=== PATIENT | male | born 1950 | race Caucasian/White ===

== ENCOUNTER 2020-09-13 06:50 | Inpatient (IN) ==
--- NOTE | 2020-08-11 09:52 | PAT Medication Instructions ---
Medication Instructions Date of Service August 11, 2020 Home Medications cholecalciferol (vitamin D3) [Vitamin D3] 2,000 unit PO QAM cyanocobalamin (vitamin B-12) [Vitamin B-12] 1,000 mcg PO QAM acetaminophen [Tylenol Arthritis Pain] 1,300 mg PO Q12H aspirin [Aspir-81] 81 mg PO QPM fish oil-dha-epa 1 cap PO TID hydrochlorothiazide 12.5 mg PO QAM lisinopril 10 mg PO QAM ofloxacin 5 drp OTIC (EAR) BID PRN omeprazole 20 mg PO QPM potassium chloride 20 meq PO QAM prazosin 5 mg PO HS simvastatin 80 mg PO HS STOP taking 2 weeks before surgery (or as soon as possible if surgery is within 2 weeks) fish oil-dha-epa 1 cap PO TID DO NOT take the morning of surgery cholecalciferol (vitamin D3) [Vitamin D3] 2,000 unit PO QAM cyanocobalamin (vitamin B-12) [Vitamin B-12] 1,000 mcg PO QAM hydrochlorothiazide 12.5 mg PO QAM lisinopril 10 mg PO QAM potassium chloride 20 meq PO QAM Take morning of surgery With a small sip of water, OTHERWISE NOTHING TO EAT OR DRINK AFTER MIDNIGHT: acetaminophen [Tylenol Arthritis Pain] 1,300 mg PO Q12H (okay to take up to 4 hours prior to surgery if needed) ofloxacin 5 drp OTIC (EAR) BID PRN (if needed) Take evening before surgery acetaminophen [Tylenol Arthritis Pain] 1,300 mg PO Q12H (if needed) aspirin [Aspir-81] 81 mg PO QPM ofloxacin 5 drp OTIC (EAR) BID PRN (if needed) omeprazole 20 mg PO QPM prazosin 5 mg PO HS simvastatin 80 mg PO HS Other Notes If you have any questions please call us at [phone] or [phone] or [phone] or [phone]
--- NOTE | 2020-08-15 11:08 | Anesthesiology Consultation ---
Date of Service August 15, 2020 Assessment & Plan (1) Encounter for pre-operative examination: - Per assessment on 08/15: Travel screen negative. No known COVID-19 positive contacts or current COVID-19 related symptoms. Surgeon arranging preop COVID testing. Awaiting results. - ASA instructions per surgeon/prescriber Chart Review Chart Review: Acceptable Risk for Surgery (pending surgeon-ordered PCP clearance) and Patient seen in Pre Admission Testing Teaching & Discussion Pre-Anesthesia Teaching/Discussion Notes: Instructed NPO after midnight before surgery,except medications with 15 cc of water. Medication instructions provided according to the PAT guidelines. History Surgery Operation Date: 09/13/20 08:55 Proposed Procedures p Left Anterior Total Hip Arthroplasty - Jn Eric, Height/Weight Height: 5 ft 5 in Weight: 79.1 kg Allergies Allergy/AdvReac Type Severity Reaction Status Date / Time No Known Drug Allergies Allergy Verified 08/03/20 15:00 Medications Home Medications Medication Instructions Recorded Confirmed Last Taken cholecalciferol (vitamin D3) 2,000 unit PO QAM 06/28/19 08/03/20 06/28/19 [Vitamin D3] cyanocobalamin (vitamin B-12) 1,000 mcg PO QAM 06/28/19 08/03/20 06/28/19 [Vitamin B-12] aspirin [Aspir-81] 81 mg PO QAM 08/03/20 08/15/20 Unknown fish oil-dha-epa 1 cap PO TID 08/03/20 08/03/20 Unknown omeprazole 20 mg PO QPM 08/03/20 08/03/20 Unknown prazosin 5 mg PO HS 08/03/20 08/03/20 Unknown simvastatin 80 mg PO HS 08/03/20 08/03/20 Unknown lisinopril-hydrochlorothiazide 1 tab PO DAILY 08/15/20 08/15/20 Unknown Past Medical History Medical History Arthritis GERD (gastroesophageal reflux disease) Hyperlipidemia Hypertension Post traumatic stress disorder Sleep apnea CPAP Exercise / Class Metabolic Activity II 4-5 Yardwork/Stairs/Walk up hill (no chest pain/sob with activity (works as net mvc developer)) Past Family History Family History Family/Other Hearing loss Hypertension Father Family history of diabetes mellitus Other No family history of adverse response to anesthesia No family history of bleeding disorder Past Surgical History Surgical History History of appendectomy History of colonoscopy History of ear surgery History of esophagogastroduodenoscopy (EGD) History of knee surgery Right History of tonsillectomy Past Anesthesia History No Hx of Anesthesia Complications and No Family Hx of Anesthesia Complications History of PONV No Hx of PONV and No Hx of Motion Sickness Social History Smoking Status: Never smoker tobacco type: smokeless tobacco Do You Dip or Chew Tobacco: Yes (2 cans/week- advised NPO AM DOS) Hx Alcohol Use: Yes Alcohol type: beer alcohol intake frequency: 0-2 drinks per day (2 drinks/day) Hx Substance Use: No Review of Systems Patient denies chest pain, shortness of breath, dyspnea on exertion, fever, chills, cough, wheezing, palpitations. Physical Exam Vital Signs VITALS BP 129/77 P 62 TEMP 98.2 SP02 97%RA RESP 16 PHYSICAL Full neck and c-spine range of motion. Full TMJ range of motion. TMD 3.5 finger breaths Mallampati Score 2 Dentition: full dentures upper/lower Lungs: clear throughout to auscultation Cardiac: regular rate and rhythm, no murmurs noted Spine: normal Carotid arteries: negative bruit Extremities: no edema Testing Laboratory Results 08/15/20 11:55 08/15/20 11:55 PT 10.9 Seconds (9.0-12.0) 08/15/20 11:55 INR 1.0 (0.9-1.1) 08/15/20 11:55 APTT 27.0 Seconds (21.0-31.0) 08/15/20 11:55 Hemoglobin A1c 5.5 % (4.5-5.6) 08/15/20 11:55 Urine Color Yellow 08/15/20 11:55 Urine Appearance Clear (Clear) 08/15/20 11:55 Urine pH 5.0 (4.5-7.5) 08/15/20 11:55 Ur Specific [place] 1.023 (1.000-1.030) 08/15/20 11:55 Urine Protein Negative (Negative) 08/15/20 11:55 Urine Glucose (UA) Negative (Negative) 08/15/20 11:55 Urine Ketones Negative (Negative) 08/15/20 11:55 Urine Nitrite Negative (Negative) 08/15/20 11:55 Ur Leukocyte Esterase Negative (Negative) 08/15/20 11:55 Blood Type A Negative 08/15/20 11:55 Antibody Screen NEGATIVE 08/15/20 11:55 Electrocardiogram Date: 08/15/20 SB at 59bpm. RBBB. unconfirmed report. Chest X-Ray Date: 08/15/20 FINDINGS: The cardiac and mediastinal contours are normal. There is no evidence of focal pulmonary consolidation. There is no evidence of failure. No pleural effusions are visualized.[ IMPRESSION: No active disease in the chest. Echocardiogram Date: 12/15/19 EF 50 to 55%. Suggestive of diastolic dysfunction but not diagnostic. Moderate LAD. Mild to moderate MR. RVSP 17.51 mmHg. Stress Test Date: 12/30/19 Type: nuclear Negative for ischemia by EKG criteria. 7.0 METS. 85% MPHR.
--- NOTE | 2020-08-15 11:53 | PAT Medication Instructions ---
Medication Instructions Date of Service August 15, 2020 Home Medications cholecalciferol (vitamin D3) [Vitamin D3] 2,000 unit PO QAM cyanocobalamin (vitamin B-12) [Vitamin B-12] 1,000 mcg PO QAM aspirin [Aspir-81] 81 mg PO QAM fish oil-dha-epa 1 cap PO TID hydrochlorothiazide 12.5 mg PO QAM/lisinopril 10 mg PO QAM omeprazole 20 mg PO QPM prazosin 5 mg PO HS simvastatin 80 mg PO HS STOP taking 2 weeks before surgery (or as soon as possible if surgery is within 2 weeks) fish oil-dha-epa 1 cap PO TID DO NOT take the morning of surgery cholecalciferol (vitamin D3) [Vitamin D3] 2,000 unit PO QAM cyanocobalamin (vitamin B-12) [Vitamin B-12] 1,000 mcg PO QAM hydrochlorothiazide 12.5 mg PO QAM/lisinopril 10 mg PO QAM Take morning of surgery With a small sip of water, OTHERWISE NOTHING TO EAT OR DRINK AFTER MIDNIGHT: aspirin [Aspir-81] 81 mg PO QAM Take evening before surgery omeprazole 20 mg PO QPM prazosin 5 mg PO HS simvastatin 80 mg PO HS Other Notes If you have any questions please call us at [phone] or [phone] or [phone] or [phone]
[2020-08-15 12:20] LABS: Basophils # (auto) 0.02 K/uL (0-0.2); Basophils % (auto) 0.3 %; Eosinophils % (auto) 1.5 %; Hematocrit (blood only) 39.1 % (42-52); Hemoglobin 13.7 g/dL (14.0-18.0); Immature Granulocytes # (auto) 0.01 K/uL (0.00-0.02); Immature Granulocytes % (auto) 0.1 %; Lymphocytes # (auto) 1.17 K/uL (1.2-3.4); Lymphocytes % (auto) 17.2 %; Mean Corpuscular Hemoglobin 32.5 pg (25-34); Mean Corpuscular Volume 92.9 fL (80-100); Mean Platelet Volume 8.4 fL (7.4-10.4); Monocytes # (auto) 0.31 K/uL (0.11-0.59); Monocytes % (auto) 4.5 %; Neutrophils # (auto) 5.21 K/uL (1.4-6.5); Neutrophils % (auto) 76.4 %; Platelet Count 215 K/uL (130-400); RDW Coefficient of Variation 12.9 % (11.5-14.5); Red Blood Count 4.21 M/uL (4.7-6.1); White Blood Count 6.82 K/uL (4.8-10.8)
--- NOTE | 2020-08-15 12:21 | XRay Report ---
XR chest Pre-admission PA/Lat CLINICAL HISTORY: Preoperative chest COMPARISON STUDY: 09/24/2019 FINDINGS: The cardiac and mediastinal contours are normal. There is no evidence of focal pulmonary co nsolidation. There is no evidence of failure. No pleural effusions are visualized.[ IMPRESSION: No active disease in the chest. ACT 112: Negative or not required by law. Electronically signed by: Jaison Vazquez M.D. 08/15/2020 12:20 PM
[2020-08-15 12:25] LABS: Appearance Urine Clear (Clear); Bilirubin Urine Negative (Negative); Blood Urine Negative (Negative); Color Urine Yellow; Glucose Urine UA Negative (Negative); Ketones Urine Negative (Negative); Leukocyte Esterase Urine Negative (Negative); Nitrite Urine Negative (Negative); Protein Urine Negative (Negative); Specific Gravity Urine 1.023 (1.000-1.030); Urobilinogen Urine Negative (Negative)
[2020-08-15 12:28] LABS: Albumin Level 3.9 gm/dl (3.4-5.0); BUN Creatinine Ratio 18.7 (10-20); Calcium 9.3 mg/dl (8.5-10.1); Creatinine Clr Calc Pharmacy 61.1 ml/min; Est GFR (African American) 80.9; Est GFR (Non-African American) 69.8
[2020-08-15 12:32] LABS: Prothrombin Time 10.9 Seconds (9.0-12.0)
[2020-08-15 13:10] LABS: Estimated Average Glucose 111 mg/dl; Hemoglobin A1C 5.5 % (4.5-5.6)
--- NOTE | 2020-08-15 16:50 | Electrocardiogram Report ---
Test Reason : Blood Pressure : / mmHG Vent. Rate : 059 BPM Atrial Rate : 059 BPM P-R Int : 202 ms QRS Dur : 142 ms QT Int : 468 ms P-R-T Axes : 054 009 016 degrees QTc Int : 463 ms Sinus bradycardia Right bundle branch block Abnormal ECG When compared with ECG of 24-SEP-2019 02:16, T wave inversion no longer evident in Anterior leads Confirmed by Reynold Tsang ([id number]) on 08/15/2020 4:49:41 PM Referred By: Jn Eric Confirmed By:Catrachito Tsang
--- NOTE | 2020-09-12 21:17 | History & Physical Report ---
Date of Service September 13, 2020 Assessment & Plan (1) Degenerative joint disease of left hip: I have indicated the patient for left anterior total hip replacement. The risks, benefits and complications of surgery were explained to the patient which include but not limited to infection, acute blood loss, DVT/PE, injury to nerves, vessels, bone, soft tissue, arthrofibrosis, chronic pain, failure of the prosthesis, hip dislocation, leg length discrepancy, need for additional surgery, cardiac and pulmonary events and . The patient wished to proceed with surgery and informed consent was obtained at this time. We will plan for 81mg ASA BID post-operatively for DVT prophylaxis. Upon discharge the patient will be discharged home with home health services. Appropriate clearances by PCP were obtained. History of Present Illness Chief Complaint: Left hip pain/DJD/AVN Primary Care Provider: Sarah Silva The patient is a 70 year old male who presents with complaints of severe left hip pain and DJD. The patient has failed outpatient conservative treatments to this point which included NSAIDs, home exercise/walking program. The patient's pain and limited function have progressed to the point where they severely hinde r their activities of daily living and they no longer tolerate exercise programs. They are requesting to proceed with total hip replacement surgery. Allergies Allergy/AdvReac Type Severity Reaction Status Date / Time No Known Drug Allergies Allergy Unknown Verified 09/13/20 07:09 Home Medications Medication Instructions Recorded Confirmed Type cholecalciferol (vitamin D3) 2,000 unit PO QAM 06/28/19 09/13/20 History [Vitamin D3] cyanocobalamin (vitamin B-12) 1,000 mcg PO QAM 06/28/19 09/13/20 History [Vitamin B-12] aspirin [Aspir-81] 81 mg PO QAM 08/03/20 09/13/20 History fish oil-dha-epa 1 cap PO TID 08/03/20 09/13/20 History omeprazole 20 mg PO QPM 08/03/20 09/13/20 History prazosin 5 mg PO HS 08/03/20 09/13/20 History simvastatin 80 mg PO HS 08/03/20 09/13/20 History lisinopril-hydrochlorothiazide 1 tab PO DAILY 08/15/20 09/13/20 History Past Med/Surg History Medical History Arthritis GERD (gastroesophageal reflux disease) Hyperlipidemia Hypertension Post traumatic stress disorder Sleep apnea CPAP Surgical History History of appendectomy History of colonoscopy History of ear surgery History of esophagogastroduodenoscopy (EGD) History of knee surgery Right History of tonsillectomy Family History Family/Other Hearing loss Hypertension Father Family history of diabetes mellitus Other No family history of adverse response to anesthesia No family history of bleeding disorder Social History Smoking Status: Never smoker Second Hand Exposure: Yes (FATHER SMOKED); Do You Dip or Chew Tobacco: Yes (2 cans/week- advised NPO AM DOS); Hx Alcohol Use: Yes Alcohol type: beer Alcohol Intake Frequency Comment: 2 DRINKS PER DAY Hx Substance Use: No Preferred Language: [place] Communication Ability: Effective Vice President Of Business Development Required: No Beliefs That Will Affect Care: None Current Living Situation: Spouse Other Information That Helps Us Care for You: No Feels Safe at Home: Yes Safety Concerns: Feels Safe At This Time Assistive Devices: CPAP, Denture - Upper, Denture - Lower, Glasses and Hearing Aid - Bilateral Review of Systems Review of Systems: All systems reviewed & are unremarkable except as noted in HPI & below Constitutional: as per Subjective / HPI Physical Exam Physical Exam: LLE NVSI +EHL/FHL/TA/GS SILT grossly, +2 DP pulse, compartments soft NT, limited painful ROM of the hip, antalgic gait. Constitutional: WD/WN, vitals as above Eyes: PERRL, conjunctivae normal, anicteric sclerae ENMT: external ear and nose normal, oropharynx normal Neck: trachea midline, no thyromegaly Respiratory: normal respiratory effort, lungs clear to auscultation Cardiovascular: RRR, no murmur, no edema Gastrointestinal (Abdomen): normal bowel sounds, soft, nontender, no hepatosplenomegaly Musculoskeletal: no cyanosis or clubbing, extremities motor strength 5/5 Skin: no rashes, warm and dry Neurologic: patellar DTR's 2+ bilat, sensation intact Psychiatric: A+Ox3, euthymic affect Lymphatic: no cervical or axillary lymphadenopathy Results & Data Results & Data ([facility]) Diagnostic Findings Multiple views of the hip demonstrates severe DJD/AVN with complete loss of the joint space. +osteophytes, +sclerosis, +subchondral cysts. Pre Admission Testing Addendum Laboratory Results 08/15/20 11:55 08/15/20 11:55 PT 10.9 Seconds (9.0-12.0) 08/15/20 11:55 INR 1.0 (0.9-1.1) 08/15/20 11:55 APTT 27.0 Seconds (21.0-31.0) 08/15/20 11:55 Hemoglobin A1c 5.5 % (4.5-5.6) 08/15/20 11:55 Urine Color Yellow 08/15/20 11:55 Urine Appearance Clear (Clear) 08/15/20 11:55 Urine pH 5.0 (4.5-7.5) 08/15/20 11:55 Ur Specific [place] 1.023 (1.000-1.030) 08/15/20 11:55 Urine Protein Negative (Negative) 08/15/20 11:55 Urine Glucose (UA) Negative (Negative) 08/15/20 11:55 Urine Ketones Negative (Negative) 08/15/20 11:55 Urine Nitrite Negative (Negative) 08/15/20 11:55 Ur Leukocyte Esterase Negative (Negative) 08/15/20 11:55 Blood Type A Negative 08/15/20 11:55 Antibody Screen NEGATIVE 08/15/20 11:55
[~2020-09-13 06:50] MED LIST: ACETAMINOPHEN 500 MG TAB PO SCH; BUPIVACAINE 0.5 % 5 MG/1 ML PF 10ML VIAL ONE; CeleBREX 200 MG CAP PO SCH; FAMOTIDINE 20 MG TAB PO SCH; GABAPENTIN 300 MG CAP PO SCH; LR 15ML/HR IV SCH; METOCLOPRAMIDE HCL 10 MG TABLET PO SCH; ROPIVACAINE 0.5% HCL/PF 150 MG, BUPIVACAINE 0.75% MPF 20 ML, EPINEPHrine 30MG/30ML (OR ... INSTIL SCH; TRANEXAMIC ACID 1,000 MG **IV Intra-op IV SCH; TRANEXAMIC ACID 1,000 MG **IV Pre-op IV SCH; ceFAZolin 2000MG 2,000 MG/15 ML SYR IV SCH; dexAMETHasone 4 MG TAB PO SCH
[2020-09-13] MEDS ORDERED: PHENYLEPHRINE 100MCG/ML 5ML SYR IV PRN (08:27)
[2020-09-13] MEDS ORDERED: MEPERIDINE HCL 25 MG/ML CARP/VIAL IV PRN (08:27)
[2020-09-13] MEDS ORDERED: LABETALOL HCL IV 5 MG/ML 20ML IV PRN (08:27)
[2020-09-13] MEDS ORDERED: ATROPINE SULFATE 0.1 MG/ML 10ML SYR IV PRN (08:27)
[2020-09-13] MEDS ORDERED: ONDANSETRON INJ 2 MG/ML 2 ML VIAL IV PRN ×2 (08:27→13:45)
[2020-09-13] MEDS ORDERED: fentaNYL citrate 100 MCG/2 ML VIAL IV PRN (08:27)
[2020-09-13] MEDS ORDERED: ePHEDrine sulfate 50 MG/ML AMP IV PRN (08:27)
[2020-09-13] MEDS ORDERED: HYDROmorphone INJ 1 MG/ML SYRINGE IV PRN (08:27)
[2020-09-13] MEDS ORDERED: MIDAZOLAM HCL 1 MG/ML 2ML VIAL ONE ×3 (09:08→10:36)
[2020-09-13] MEDS ORDERED: PROPOFOL IV EMULSION 10 MG/ML 20 ML VIAL IV ONE (09:10)
--- NOTE | 2020-09-13 09:29 | History & Physical Bridge Note ---
Date of Service September 13, 2020 History & Physical Bridge Note I have examined the patient, reviewed the History & Physical and in the interval since the performance of the History & Physical I have noted the following changes of clinical significance: no changes noted
[2020-09-13] MEDS ORDERED: BACITRACIN INJ 50,000 UNIT VIAL ONE (09:46)
[2020-09-13] MEDS ORDERED: ORTHO JOINT ANESTHETIC ONE (09:46)
[2020-09-13] MEDS ORDERED: ePHEDrine sulfate 50 MG/ML SYR ONE (10:58)
[2020-09-13] MEDS ORDERED: LIDOCAINE HCL 2% 2 ML VIAL/AMP(20MG/ML) INFIL ONE (10:58)
--- NOTE | 2020-09-13 11:55 | Post Operative Brief Note ---
Immediate Post Op Note v1 Date of Surgery September 13, 2020 Pre & Post Diagnosis Operation Date: 09/13/20 09:15 Pre-Op Diagnosis: Unilateral Primary Osteoarthritis, Left Hip Post-Op Diagnosis: Unilateral Primary Osteoarthritis, Left Hip I identified the patient and participated in the time-out.: Yes Procedure Operation Date: 09/13/20 09:15 Actual Procedures p Left Anterior Total Hip Arthroplasty(Left) - Jn Eric DO Surgeon Jn Eric DO Colliery Clerk Tripp Schaffer Estimated Blood Loss 175 Findings Consistent with Post-Op Diagnosis Specimens femoral head Anesthesia Type Spinal MAC Complications none Disposition Disposition: Recovery Room Overlapping Procedure I was present for: the critical portions of procedure. I was immediately available: during the entire case. Back up surgeon: was not required during procedure.
--- NOTE | 2020-09-13 11:58 | Operative Report ---
Post Operative Report Pre & Post Diagnosis Operation Date: 09/13/20 09:15 Pre-Op Diagnosis: Unilateral Primary Osteoarthritis, Left Hip Post-Op Diagnosis: Unilateral Primary Osteoarthritis, Left Hip I identified the patient and participated in the time-out.: Yes Procedure Operation Date: 09/13/20 09:15 Actual Procedures p Left Anterior Total Hip Arthroplasty(Left) - Jn Eric DO Surgeon Jn Eric DO Medical Doctor Md Tripp Schaffer Estimated Blood Loss 175 Findings Consistent with Post-Op Diagnosis Specimens femoral head Anesthesia Type Spinal MAC Complications none Disposition Disposition: Recovery Room Indications The patient is a 70-year-old male who presents with severe progressive left hip DJD who has failed outpatient conservative treatments. I indicated the patient for a anterior total hip replacement and the risks and benefits were explained in detail which include but not limited to infection, bleeding, blood clot, damage to surrounding bone, nerves, vessels, soft tissue, hip dislocation, failure of the prosthesis, leg length discrepancy, need for additional surgery and . The patient agreed to proceed with replacement of the hip and informed consent was obtained. Appropriate clearances were obtained. Description of Procedure COMPONENTS USED: [employer] hip system: Acetabulum size 54, femur size 8 high offset, femoral head 36-3, liner 54x36, acetabular screw 25 mm x 1. DESCRIPTION OF PROCEDURE: Following satisfactory spinal anesthesia, the patient was placed supine on the OR table. The right leg was placed in the well leg dickerson and the left leg in the traction device. The left leg was prepared with ChloraPrep and draped sterilely. A surgical timeout was performed, patient identified and site stanislaw verified. Appropriate antibiotics were given. A standard anterior approach in the interval between the sartorius and tensor muscles was performed. Dissection was carried down through subcutaneous tissues. Electrocautery was utilized for hemostasis. Circumflex femoral vessels were identified, tied and ligated. The anterior capsular fat pad was removed and the capsulotomy was performed revealing the arthritic femoral neck and head. A femoral neck cut was made with reciprocating saw and the bone fragments removed. The acetabular self-retraining retractor was placed. Acetabular reaming was completed under fluoroscopic guidance, a 54 shell was impacted into an anatomic position and secured with a acetabular screw. Local anesthetic was placed and following irrigation, the polyethylene liner was placed. The femur was placed into position of external rotation, extension and adduction. Femoral canal was prepared up to the size 8 high offset. Trial reduction with a 36-3 neck length head showed good soft tissue tension, leg lengths restored, and good fit and fill of the proximal canal using fluoroscopic landmarks. The hip was dislocated. The trial component was removed. The final implant was placed. The hip was irrigated with sterile saline solution and reduced. A Betadine soak was performed. After 3 minutes, the hip was once more irrigated with copious sterile saline solution with bacitracin. Anu-incisional soft tissue was injected utilizing [place] Orthomix which includes a combination of Ropivicaine 0.5% 150mg, Bupivicaine 0.5%/Epinephrine 1:200,000 30ml, Toradol 30mg, Dexamethasone 4mg, Ketamine 10mg, Clonidine 100mcg and NSS 30ml solution. The capsule was then closed with 1-0 Vicryl interrupted figure of eight sutures. The fascia was closed with a running suture of #1 Vicryl, the subcutaneous tissues with 2-0 Vicryl and the skin was closed with jasmyne. A sterile dry dressing was applied which included azar incisional VAC. The patient tolerated the procedure well and was transported to PACU in stable condition. Due to the complex nature of the procedure, the entire surgery was performed with the operational assistance of Tripp Schaffer PA-C. The assistant professor of drama, under direct supervision, was involved in the actual performance of all aspects of the surgical procedure including patient positioning, hemostasis, tissue retraction, instrument management and wound closure. I attest to the content of the Intraoperative Record and any orders documented therein. Any exceptions are noted below.
--- NOTE | 2020-09-13 12:37 | Fluoroscopy Report ---
FL hip LT 1V CLINICAL HISTORY: LEFT ANTERIOR HIP COMPARISON STUDY: None. FLUOROSCOPY TIME: 32 seconds. FINDINGS: 3 fluoroscopic spot images of the left hip demonstrate left hip arthroplasty. The hardware is intact. No fracture or dislocation. IMPRESSION: Fluoroscopy provided for left total hip arthroplasty. ACT 112: Negative or not required by law. Electronically signed by: Garett Schmidt M.D. 09/13/2020 12:36 PM
--- NOTE | 2020-09-13 12:58 | XRay Report ---
AP PELVIS, CROSSTABLE LATERAL LEFT HIP History: Left total hip arthroplasty. Degenerative arthritis. Postop. FINDINGS: The patient is status post a left total hip arthroplasty. The hardware is intact. No fractu re or dislocation. Severe degenerative changes noted within the right hip. Left hip skin jasmyne are in place. IMPRESSION: Left total hip arthroplasty. No evidence for hardware complication. ACT 112: Negative or not required by law. Electronically signed by: Garett Schmidt M.D. 09/13/2020 12:56 PM
--- NOTE | 2020-09-13 13:06 | Anesthesiology Progress Note ---
Date of Service September 13, 2020 Anesthesia Post Procedure Vital Signs Vital Signs: Temp Pulse Pulse Resp BP BP Pulse Ox 09/13/20 12:55 36.1 C L 61 15 104/57 L 97 09/13/20 12:45 69 20 95/56 L 97 09/13/20 12:35 65 14 103/66 95 09/13/20 12:25 67 10 L 101/57 L 97 09/13/20 12:16 36.2 C L 69 17 98/58 L 98 09/13/20 07:21 36.7 C 70 20 158/73 H 99 Transfer of Care Handoff Completed per policy Notes Mental Status: alert / awake / arousable Patient Amnestic to Procedure: Yes Nausea / Vomiting: adequately controlled Pain: adequately controlled Airway Patency, RR, SpO2: stable & adequate BP & HR: stable & adequate Hydration State: stable & adequate Neuraxial Anesthesia: was administered and sensory block is resolving Anesthetic Complications: no major complications apparent and Pt Satisfied with anesthetic care
[2020-09-13] MEDS ORDERED: HYDROmorphone INJ 0.5 MG/0.5 ML SYR IV PRN (13:45)
[2020-09-13] MEDS ORDERED: MAGNESIUM HYDROXIDE SUSP 30 ML UDC PO PRN (13:45)
[2020-09-13] MEDS ORDERED: oxyCODONE HCL IR 5 MG TAB (IMMEDIATE RELEASE) PO PRN (13:45)
[2020-09-13] MEDS ORDERED: diphenhydrAMINE Capsule 25 MG CAP PO PRN (13:45)
[2020-09-13] MEDS ORDERED: METOCLOPRAMIDE HCL INJ 5 MG/ML 2 ML VIAL IV PRN (13:45)
[2020-09-13] MEDS ORDERED: bisacodyL 10 MG SUPP PR PRN (13:45)
[2020-09-13] MEDS ORDERED: NALOXONE HCL 0.4 MG/1 ML VIAL/CARP IV PRN (13:45)
[2020-09-13] MEDS: ACETAMINOPHEN 500 MG TAB PO SCH ×2 (15:07→22:48)
[2020-09-13] MEDS: SODIUM CHLORIDE 0.9% 1000ML 1,000 ML IV SCH (15:07)
[2020-09-13] MEDS: KETOROLAC TROMETHAMINE 15 MG/ML VIAL IV SCH ×2 (15:08→20:09)
--- NOTE | 2020-09-13 15:51 | Orthopedic Progress Note ---
Date of Service September 13, 2020 Assessment & Plan (1) Degenerative joint disease of left hip: s/p L anterior JAIME -Ancef x 24 -DVT ppx: SCDs, TEDs, 81mg ASA BID -WBAT LLE -PT/OT -PO XR demonstrates a well aligned well fixed prosthesis without fracture/dislocation -am labs -DC planning Admission and Anticipated Discharge Date Admission Date: September 13, 2020 Subjective Post Operative Progress Note Patient seen sitting up in bed, comfortable, denies complaints, pain well controlled, no acute issues. Still feelings effects of spinal anesthesia. Review of Systems Review of Systems: All systems reviewed & are unremarkable except as noted in HPI & below Constitutional: as per Subjective / HPI Physical Exam Physical Exam: LLE PE limited secondary to spinal anesthesia, +2 DP pulse, compartments soft NT, dressing CDI Constitutional: WD/WN, vitals as above Results & Data ([facility]) Vital Signs (Past 12 Hours) Vital Signs Temp Pulse Pulse Pulse Resp BP BP 09/13/20 15:30 36.3 C L 78 18 102/61 09/13/20 14:31 37.7 C H 65 16 106/58 L 09/13/20 14:00 62 18 106/59 L 09/13/20 13:30 36.8 C 63 20 104/50 L 09/13/20 13:10 74 20 107/61 09/13/20 12:55 36.1 C L 61 15 104/57 L 09/13/20 12:45 69 20 95/56 L 09/13/20 12:35 65 14 103/66 09/13/20 12:25 67 10 L 101/57 L 09/13/20 12:16 36.2 C L 69 17 98/58 L 09/13/20 07:21 36.7 C 70 20 158/73 H Pulse Ox 09/13/20 15:30 96 09/13/20 14:31 95 09/13/20 14:00 95 09/13/20 13:30 95 09/13/20 13:10 97 09/13/20 12:55 97 09/13/20 12:45 97 09/13/20 12:35 95 09/13/20 12:25 97 09/13/20 12:16 98 09/13/20 07:21 99
[2020-09-13] MEDS: ceFAZolin 2000MG 2,000 MG/15 ML SYR IV SCH (17:37)
[2020-09-13] MEDS: DOCUSATE SODIUM 100 MG CAP PO SCH (20:07)
[2020-09-13] MEDS ORDERED: SENNA 8.6 MG TAB PO SCH (21:00)
[2020-09-13] MEDS ORDERED: SIMVASTATIN 80 MG TAB PO SCH (21:00)
[2020-09-13] MEDS ORDERED: PRAZOSIN HCL 1 MG CAP PO SCH (21:00)
[2020-09-13] MEDS ORDERED: PANTOprazole 40 MG TAB PO SCH (21:00)
[2020-09-14] MEDS: KETOROLAC TROMETHAMINE 15 MG/ML VIAL IV SCH ×2 (03:02→08:29)
[2020-09-14] MEDS: ceFAZolin 2000MG 2,000 MG/15 ML SYR IV SCH (03:06)
[2020-09-14] MEDS: SODIUM CHLORIDE 0.9% 1000ML 1,000 ML IV SCH ×2 (03:13→07:27)
[2020-09-14] MEDS: ACETAMINOPHEN 500 MG TAB PO SCH (05:29)
[2020-09-14 07:17] LABS: Basophils # (auto) 0.01 K/uL (0-0.2); Basophils % (auto) 0.1 %; Hematocrit (blood only) 31.5 % (42-52); Hemoglobin 11.1 g/dL (14.0-18.0); Immature Granulocytes # (auto) 0.01 K/uL (0.00-0.02); Immature Granulocytes % (auto) 0.1 %; Lymphocytes # (auto) 0.81 K/uL (1.2-3.4); Lymphocytes % (auto) 6.8 %; Mean Corpuscular Hemoglobin 32.2 pg (25-34); Mean Corpuscular Hgb Conc 35.2 g/dL (32-36); Mean Corpuscular Volume 91.3 fL (80-100); Mean Platelet Volume 8.5 fL (7.4-10.4); Monocytes % (auto) 8.3 %; Neutrophils # (auto) 10.16 K/uL (1.4-6.5); Neutrophils % (auto) 84.7 %; Platelet Count 240 K/uL (130-400); RDW Coefficient of Variation 13.2 % (11.5-14.5); RDW Standard Deviation 43.9 fL (36.4-46.3); Red Blood Count 3.45 M/uL (4.7-6.1); White Blood Count 11.99 K/uL (4.8-10.8)
[2020-09-14 07:45] LABS: BUN Creatinine Ratio 24.9 (10-20); Creatinine Clr Calc Pharmacy 52.1 ml/min; Est GFR (African American) 65.6; Est GFR (Non-African American) 56.6; Potassium 4.1 mmol/L (3.5-5.1)
[2020-09-14] MEDS: DOCUSATE SODIUM 100 MG CAP PO SCH (08:29)
[2020-09-14] MEDS ORDERED: MULTIVITAMIN TAB PO SCH (09:00)
[2020-09-14] MEDS ORDERED: LISINOPRIL/HCTZ 10/12.5MG TAB PO SCH (09:00)
[2020-09-14] MEDS ORDERED: ASPIRIN 81 MG ECTAB PO SCH (09:00)
--- NOTE | 2020-09-14 09:11 | Orthopedic Progress Note ---
Date of Service September 14, 2020 Assessment & Plan (1) Degenerative joint disease of left hip: s/p L anterior JAIME POD#1 -Ancef x 24 -DVT ppx: SCDs, TEDs, 81mg ASA BID -WBAT LLE -PT/OT -PO XR demonstrates a well aligned well fixed prosthesis without fracture/dislocation -am labs - as above, hgb 11.1 -DC planning - home with Admission and Anticipated Discharge Date Admission Date: September 13, 2020 Subjective Post Operative Progress Note Patient seen sitting up in bed, comfortable, denies complaints, pain well controlled, no acute issues. Denies F/C/N/V/SOB/CP. Review of Systems Review of Systems: All systems reviewed & are unremarkable except as noted in HPI & below Constitutional: as per Subjective / HPI Physical Exam Physical Exam: LLE NVSI +EHL/FHL/TA/GS SILT grossly, +2 DP pulse, compartments soft NT, dressing cdi. Constitutional: WD/WN, vitals as above Results & Data ([facility]) Vital Signs (Past 12 Hours) Vital Signs Temp Pulse Resp BP Pulse Ox 09/14/20 07:30 36.5 C 67 18 103/55 L 98 09/14/20 03:17 36.8 C 65 17 116/66 94 09/13/20 22:35 36.2 C L 71 17 101/62 96 Laboratory Results 09/14/20 09/14/20 Range/Units 06:38 06:38 WBC 11.99 H (4.8-10.8) K/uL RBC 3.45 L (4.7-6.1) M/uL Hgb 11.1 L (14.0-18.0) g/dL Hct 31.5 L (42-52) % MCV 91.3 (80-100) fL MCH 32.2 (25-34) pg MCHC 35.2 (32-36) g/dL RDW Std Deviation 43.9 (36.4-46.3) fL RDW Coeff of Angel 13.2 (11.5-14.5) % Plt Count 240 (130-400) K/uL MPV 8.5 (7.4-10.4) fL Immature Gran % (Auto) 0.1 % Neut % (Auto) 84.7 % Lymph % (Auto) 6.8 % Stephens % (Auto) 8.3 % Eos % (Auto) 0.0 % Baso % (Auto) 0.1 % Neut # (Auto) 10.16 H (1.4-6.5) K/uL Lymph # (Auto) 0.81 L (1.2-3.4) K/uL Stephens # (Auto) 1.00 H (0.11-0.59) K/uL Eos # (Auto) 0.00 (0-0.5) K/uL Baso # (Auto) 0.01 (0-0.2) K/uL Immature Gran # (Auto) 0.01 (0.00-0.02) K/uL Sodium 138 (136-145) mmol/L Potassium 4.1 (3.5-5.1) mmol/L Chloride 109 H (98-107) mmol/L Carbon Dioxide 21 (21-32) mmol/L Anion Gap 8.0 (3-11) BUN 31 H (7-18) mg/dl Creatinine 1.26 (0.6-1.4) mg/dl Est Cr Clr Drug Dosing 52.1 ml/min Est GFR ( Amer) 65.6 Est GFR (Non-Af Amer) 56.6 BUN/Creatinine Ratio 24.9 H (10-20) Glucose 117 H (70-99) mg/dl Calcium 9.0 (8.5-10.1) mg/dl
[2020-09-14] MEDS ORDERED: CeleBREX 200 MG CAP PO SCH (15:00)
--- NOTE | 2020-09-14 23:25 | Discharge Summary ---
Date of Service September 14, 2020 Admission HPI Per Admitting Provider The patient is a 70 year old male who presents with complaints of severe left hip pain and DJD. The patient has failed outpatient conservative treatments to this point which included NSAIDs, home exercise/walking program. The patient's pain and limited function have progressed to the point where they severely hinder their activities of daily living and they no longer tolerate exercise programs. They are requesting to proceed with total hip replacement surgery. Principal Diagnosis Left anterior total hip replacement -Left hip DJD Discharge Exam LLE NVSI +EHL/FHL/TA/GS SILT grossly, +2 DP pulse, compartments soft NT, dressing cdi. Constitutional WD/WN, vitals as above Discharge Data Allergies Allergy/AdvReac Type Severity Reaction Status Date / Time No Known Drug Allergies Allergy Unknown Verified 09/13/20 07:09 Consultations 09/14/20 08:00 Consult Case Management - Discharge Planning Routine Procedures Performed Operation Date: 09/13/20 09:15 Actual Procedures p Left Anterior Total Hip Arthroplasty(Left) - Jn Eric DO Ordered Studies 09/13/20 09:15 FL fluoroscopy <1hr Routine FL hip LT 1V Routine Hospital Course (1) Degenerative joint disease of left hip: The patient is a 70 -year-old male who presents with long standing history of severe left hip DJD and failed outpatient conservative treatments. The patient's symptoms have progressed to the point where it has been difficult to perform even normal activities of daily living. I indicated the patient for a left anterior total hip arthroplasty, the risks, benefits and complications of the procedure include but not limited to infection, bleeding, damage to bone, nerves, vessels, surrounding soft tissue, may develop blood clots, loss of function, leg length discrepancy, dislocation, failure of the components, loosening of the components, the need for additional surgery and . The patient wished to proceed with surgery at this time and informed consent was obtained. Hospital Course: On 09/13/20 the patient was taken to the operating room, adequate anesthesia administered and underwent a left anterior total hip arthroplasty. The patient tolerated the procedure well and was taken to the PACU in stable condition. Post-operatively the patient was started on a DVT ppx medication and given appropriate IV antibiotics. Consults were placed to physical therapy, occupational therapy and case management. On POD#1, the patient did well overnight and their pain was well controlled. Labs were drawn and the Hgb was 11.1. The patient progressed well with PT. Dressings were changed at this time and the incision was clean, dry and intact. The patients hospital stay was relatively uneventful and they were deemed stable by the orthopedic team and consultants to be discharged home with HH on 09/14/20. Discharge Instructions: Upon discharge the patient may weight bear as tolerates through their operative extremity. They were instructed to keep the incision clean and dry at all times. The patient may shower but should not submerge the incision, avoid bathing, pools and hot tubs. The patient was given a script for pain medication and should take as instructed. The patient was given a script for DVT ppx 81mg ASA BID and should take as directed. The patient was instructed to not drive or travel for long distances until cleared to do so. If the patient develops any symptoms of fevers, chills, nausea, vomiting, increased redness, swelling, pain or drainage from the surgical site, they should notify the office and/or proceed to the nearest emergency room. The patient should follow up in 10-14 days after surgery for their routine post-operative follow-up appointment and should call the office, to confirm the date and time. s/p L anterior JAIME POD#1 -Ancef x 24 -DVT ppx: SCDs, TEDs, 81mg ASA BID -WBAT LLE -PT/OT -PO XR demonstrates a well aligned well fixed prosthesis without fracture/dislocation -am labs - as above, hgb 11.1 -DC planning - home with Total Time Total Time Spent Total Time Spent (In Minutes): 30 Discharge Plan Discharge Items Patient Disposition: Home - Home Health Services Reason For Visit: Unilateral Primary Osteoarthritis, Left Hip Discharge Diagnosis: Left anterior total hip replacement -Left hip DJD Condition on Discharge: Good Activity: Per Instructions section Lifting: Wait until after follow-up appointment Bathing: Keep incision dry Bathing Comment: No bathing, pools or hot tubs. Sexual Activity: Wait until after follow-up appointment Exercise/Sports: Wait until after follow-up appointment Driving/Machine Use: No Driving Weightbearing: Full weightbearing Non-emergency contact: Primary Care Provider and Surgeon Call non-emergency contact if: you have any medication questions, your symptoms worsen, your pain is not controlled, your pain is worsening, your pain is unusual for you, your pain is concerning for you, you have a fever, your temperature is above 101, your wound has increased redness, your wound has increased drainage and your wound pain has increased Follow-up/Referrals: Sarah Silva PA-C [Primary Care Provider] - Diet: Regular Addtl Attending Provider Instructions: ACTIVITY RECOMMENDATIONS: SELF CARE INSTRUCTIONS AFTER TOTAL HIP REPLACEMENT : Direct Anterior Approach Until the incision and soft tissues around your hip have healed, there is a possibility that the hip prosthesis could dislocate. A. Hip flexion ( Up & Down out of chair or steps ) may be difficult. This is normal. B. Numbness in front of the thigh is also normal for a few weeks. C. Use hand rails when walking on stairs. D. Wear low heeled shoes with non-slip soles. E. Be sure that your floors are free of things that could trip you - throw rugs, electrical cords, small objects. Avoid wet and waxed floors, especially with crutches and canes. F. Try to walk several times a day with rest periods between. G. Continue with all the exercises taught to you in the hospital. Again, make walking a part of your daily routine. SPECIAL CARE INSTRUCTIONS: VERY IMPORTANT TO READ AND REVIEW A. You may still be at risk for phlebitis and blood clots. 1. Wear surgical stockings (RANDY hose) for 2 weeks after surgery to improve circulation and reduce swelling. 2. Take Aspirin 81mg twice daily for 4 weeks or as directed by your doctor. This is your blood thinner. 3. High risk patients may be prescribed a stronger blood thinner if necessary. 4. If you are on Coumadin normally, your family doctor/sow farm technician should monitor your blood work. Expect a phone call the day of or the day after bloodwork is drawn to adjust your dosage. B. You must take antibiotics before having dental work, bladder, bowel and other surgery. Your doctor will provide you with a permanent card to carry de scribing precautions. C. Call [facility] if you have a fever, redness or swelling around the incision, cloudy drainage from incision, or sudden increase in pain in your hip, not relieved by your regular pain medication. D. Please call the office at if you have any concerns or que stions about your operation or recovery. * YOU MAY SHOWER, NO TUB BATHS UNTIL CLEARED BY YOUR DOCTOR. - Keep an extra close eye on the top portion of your incision. Be sure to keep clean & dry. * WEAR RANDY HOSE 20 HOURS PER DAY FOR 2 WEEKS. * YOU MAY PROGRESS FROM A WALKER, TO A CANE, TO INDEPENDENT AT YOUR OWN PACE. * MOST PATIENTS WILL HAVE HOME NURSING FOR THERAPY. IF YOU DECIDE TO DO OUTPATIENT PHYSICAL THERAPY, PLEASE SCHEDULE THIS 3 TIMES PER WEEK. *ADRIEL incisional vac is a special dressing covering your incision. This dressing provides a sterile dry environment while you are healing. The dressing is to be left in place for 7 days post-operatively. Your home nurse or surgeon will remove. If you develop any redness or blisters or have any questions notify your surgeon immediately. FOLLOW UP VISIT: If appointment is not already scheduled: Please call [facility] to make a follow-up appointment for 2 weeks after your surgery at . Pending Studies at Discharge: No Stand-Alone Forms: [facility] [employer], Smoking Cessation Medications and DC Order Prescriptions: New aspirin 81 mg Tablet,Delayed Release (Dr/Ec) 81 mg PO BID Qty: 56 RF: 0 acetaminophen 500 mg Tablet 1,000 mg PO Q8 PRN (Reason: pain/fevers) Qty: 90 RF: 0 oxycodone 5 mg Tablet 5 mg PO Q6H MDD 4 PRN (Reason: pain) Qty: 30 RF: 0 sennosides [Senokot] 8.6 mg Tablet 17.2 mg PO HS PRN (Reason: constipation) Qty: 28 RF: 0 celecoxib [Celebrex] 200 mg Capsule 200 mg PO BID PRN (Reason: pain/inflammation) Qty: 28 RF: 0 Continued cyanocobalamin (vitamin B-12) [Vitamin B-12] 1,000 mcg Tablet 1,000 mcg PO QAM RF: 0 cholecalciferol (vitamin D3) [Vitamin D3] 1,000 unit Tablet,Chewable 2,000 unit PO QAM RF: 0 simvastatin 80 mg Tablet 80 mg PO HS RF: 0 prazosin 5 mg Capsule 5 mg PO HS RF: 0 omeprazole 20 mg Capsule,Delayed Release(Dr/Ec) 20 mg PO QPM RF: 0 fish oil-dha-epa 1,200-144-216 mg Capsule 1 cap PO TID RF: 0 lisinopril-hydrochlorothiazide 10-12.5 mg Tablet 1 tab PO DAILY RF: 0 Discontinued aspirin [Aspir-81] 81 mg Tablet,Delayed Release (Dr/Ec) 81 mg PO QAM RF: 0 Discharge Orders: Discharge Order (Routine); Ordered 09/14/20 Ordered By: Jn Eric Admission Data Admit Date/Time: 09/13/20 12:27 Attending Provider: Jn Eric Admit Provider: Jn Eric Primary Care Provider: Sarah Silva Other Interventions: Discharge Summary Assessment (RN) Last Done: 09/14/20 10:38
== END 2020-09-14 12:36 | disposition home health service (06) | DRG 470 ==
LOC: 3E 06:50 → ASU 06:50 → OBSVTOIN 12:27

== ENCOUNTER 2023-03-24 18:53 | Observation (INO) ==
[2023-03-24] MEDS ORDERED: STAT IV Infusion **Titration per Protocol STA (19:13)
[2023-03-24] MEDS ORDERED: dilTIAZem HCl 5 MG/ML 5 ML VIAL IV STA (19:13)
[2023-03-24] MEDS ORDERED: SODIUM CHLORIDE 0.9% 500 ML IV ONE (19:13)
--- NOTE | 2023-03-24 19:26 | Emergency Department Note ---
Impression & Plan Atrial flutter with rapid ventricular response, S/P CABG x 2, Anemia, Tachycardia ED Provider Note NAME: HALLE BAI Jr AGE: 72 SEX: M : 1950 ARRIVES VIA: Walk-In INFORMANT: [Patient] ED PROVIDER(S): [Marcus Larose MD] CHIEF COMPLAINT: Tachycardia HISTORY OF PRESENT ILLNESS: The patient is a 72-year-old male presents to the ED with complaints of a faster heart rate. He states this has been occurring all day--around 12 hours now. He has not noticed any chest pain or shortness of breath. He does not feel weak. The patient has no history of a faster heart rate. He did have a CABG x2 at [facility] on 26 February. He has done well since the surgery. He does take a small amount of metoprolol on a regular basis. He is not on any strong blood thinners. PMHx/PSHx: See Below SOCIAL HISTORY: See Below. PHYSICAL EXAM: GENERAL: Patient is in no acute distress. HEENT: No acute trauma, normocephalic atraumatic, mucous membranes moist, no nasal congestion. NECK: No stridor, no adenopathy, no meningismus, trachea is midline. LUNGS: Clear to auscultation bilaterally, no wheeze, no rhonchi, breath sounds equal. HEART: Tachycardic, irregular, no murmurs ABDOMEN: Soft, nontender, bowel sounds positive, no peritonitis. EXTREMITIES: No cyanosis, mild bilateral pedal edema, full range of motion of all the joints without pain or difficulty, no signs for acute trauma. NEUROLOGIC: Oriented x 3, no acute motor or sensory deficits, no focal weakness. SKIN: No rash, no jaundice, no diaphoresis. DIFFERENTIAL DIAGNOSIS: A-fib or a flutter, SVT, V. tach, electrolyte imbalance, anemia, AR, among others. EMERGENCY DEPARTMENT COURSE/PROCEDURES: Prior/Outside records reviewed: Recent cardiology note. ECG per my interpretation: Indication was tachycardia. The ECG shows what appears to be atrial flutter with a rate of 122. There is a right bundle branch block. There is no ST elevation. There is diffuse nonspecific ST change. No PVCs. The QTc is 518. Compared to an ECG from 05 March 2023, the atrial flutter is now present. The nonspecific ST change is now present. Continuous Cardiac Monitoring per my interpretation: An order was placed for continuous cardiac monitoring. The monitor shows a rate of 138 with atrial flutter. Critical Care Note: I have personally spent 51 minutes of critical care time in the direct management of this patient. This includes bedside care, interpretation of diagnostic studies, and testing, discussion with consultants, patient, and family members, and other required patient management activities. This 51 minutes is in excess of all separately billable procedures. MEDICAL DECISION MAKING: There is no leukocytosis. Patient does have a mild anemia, this has been documented before. There is a normal platelet count. No coagulopathy. No renal failure or significant electrolyte abnormality. No concerning liver enzyme elevation. Patient appears to be in a euthyroid state. ECG shows what appears to be atrial flutter with a rapid response. No acute ischemia. Cardiac enzyme testing x1 is not consistent with acute cardiac injury. Chest film per my review does show some haziness at the left base consistent with a potential small pleural effusion. There is no CHF or pneumothorax, no pneumonia. Patient was given a 500 cc saline bolus. He was given a gram of IV magnesium. He was given a bolus of IV diltiazem and placed on a diltiazem drip. His heart rate is now in the 80s. He remains in atrial flutter though. The patient is in need of a hospital stay. He is status post CABG x2. He now appears to be in a rapid atrial flutter. Hopefully, he will spontaneously convert but if not, may require cardioversion. I did speak with the patient and case management, the on-call hospitalist was consulted. DISPOSITION: Patient's presentation and findings warrant a hospital stay. Past Med/Surg History Medical History Arthritis Degenerative joint disease of left hip GERD (gastroesophageal reflux disease) Hyperlipidemia Hypertension Post traumatic stress disorder Sleep apnea CPAP Surgical History History of appendectomy History of colonoscopy History of ear surgery History of esophagogastroduodenoscopy (EGD) History of knee surgery Right History of left knee replacement 09/2021 History of tonsillectomy Family History Family/Other Hearing loss Hypertension Father Family history of diabetes mellitus Other No family history of adverse response to anesthesia No family history of bleeding disorder Social History Smoking Status: Never smoker Second Hand Exposure: Yes (FATHER SMOKED); Do You Dip or Chew Tobacco: Yes (2 cans/week- advised NPO AM DOS); Hx Alcohol Use: Yes Alcohol type: beer Alcohol Intake Frequency Comment: 2 DRINKS PER DAY Hx Substance Use: No Preferred Language: Lithuanian Communication Ability: Effective Press Maintainer Required: No Beliefs That Will Affect Care: None marital status: Current Living Situation: Spouse Feels Safe at Home: Yes Assistive Devices: Walker Allergies Allergies Allergy/AdvReac Type Severity Reaction Status Date / Time No Known Allergies Allergy Verified 03/05/23 02:05 Home Meds Home Medications Medication Instructions Recorded Confirmed amlodipine 2.5 mg tablet 2.5 mg PO DAILY 03/05/23 03/05/23 aspirin 81 mg tablet,delayed 81 mg PO DAILY 03/05/23 03/05/23 release cholecalciferol (vitamin D3) 25 25 mcg PO DAILY 03/05/23 03/05/23 mcg (1,000 unit) capsule (Vitamin D3) clopidogrel 75 mg tablet 75 mg PO DAILY 03/05/23 03/05/23 cyanocobalamin (vitamin B-12) 500 1,000 mcg PO DAILY 03/05/23 03/05/23 mcg tablet (Vitamin B-12) cyclobenzaprine 5 mg tablet 5 mg PO BID PRN MUSCLE SPASMS 03/05/23 03/05/23 ferrous sulfate 325 mg (65 mg 325 mg PO Q OTHER DAY 03/05/23 03/05/23 iron) tablet furosemide 40 mg tablet 40 mg PO BID 03/05/23 03/05/23 metoprolol tartrate 25 mg tablet 12.5 mg PO DAILY 03/05/23 03/05/23 pantoprazole 40 mg tablet,delayed 40 mg PO DAILY 03/05/23 03/05/23 release potassium chloride 20 mEq 20 meq PO BID 03/05/23 03/05/23 tablet,extended release prazosin 2 mg capsule 6 mg PO HS 03/05/23 03/05/23 simvastatin 40 mg tablet 40 mg PO HS 03/05/23 03/05/23 Previous Rx's Medication Instructions Recorded acetaminophen 500 mg tablet 1,000 mg PO Q8 PRN pain/fevers #90 09/13/20 tabs Results & Data (ED) Vital Signs Vital Signs - 24 hr 03/24/23 18:58 03/24/23 19:21 03/24/23 19:32 Temperature 36.5 C Temperature Source Temporal Artery Scan Pulse Rate 135 H Pulse Rate [Right] 102 H 93 H Pulse Rhythm [Right] Respiratory Rate 19 16 22 Respiratory Effort / Characteristics Non-Labored Spontaneous Non-Labored Spontaneous Non-Labored Spontaneous Respiratory Depth Normal Normal Normal Respiratory Pattern Regular Blood Pressure 115/74 Blood Pressure [Right Arm] 111/90 128/47 L Blood Pressure Mean 87 Blood Pressure Mean [Right Arm] 97 74 Pulse Oximetry 97 98 98 Oxygen Delivery Method Room Air Room Air Room Air Sepsis Recent Fever Within 48 Hours No Sepsis New/Unexplained Change in Mental Status N/A Sepsis Action Taken by Nursing No Action Required 03/24/23 20:00 03/24/23 20:30 03/24/23 21:00 Temperature Temperature Source Pulse Rate Pulse Rate [Right] 81 97 H 81 Pulse Rhythm [Right] Irregular Respiratory Rate 16 16 16 Respiratory Effort / Characteristics Non-Labored Spontaneous Respiratory Depth Normal Respiratory Pattern Regular Blood Pressure Blood Pressure [Right Arm] 99/72 L 106/82 105/71 Blood Pressure Mean Blood Pressure Mean [Right Arm] 81 90 82 Pulse Oximetry 96 98 99 Oxygen Delivery Method Room Air Room Air Room Air Sepsis Recent Fever Within 48 Hours Sepsis New/Unexplained Change in Mental Status Sepsis Action Taken by Nursing 03/24/23 19:30 Temperature Temperature Source Pulse Rate 85 Pulse Rate [Right] Pulse Rhythm [Right] Respiratory Rate Respiratory Effort / Characteristics Respiratory Depth Respiratory Pattern Blood Pressure Blood Pressure [Right Arm] Blood Pressure Mean Blood Pressure Mean [Right Arm] Pulse Oximetry Oxygen Delivery Method Sepsis Recent Fever Within 48 Hours Sepsis New/Unexplained Change in Mental Status Sepsis Action Taken by Retirement Medications Current Medication List: was personally reviewed by me Laboratory Data Attestation: I reviewed the patient's lab results. 03/24/23 19:19 03/24/23 21:27 Lab Results 03/24/23 03/24/23 03/24/23 Range/Units 19:19 19:19 19:19 WBC 6.19 (4.8-10.8) K/ul RBC 4.40 L (4.70-6.10) M/uL Hgb 11.8 L (14.0-18.0) g/dl Hct 37.0 L (42.0-52.0) % MCV 84.1 (80.0-100.0) fL MCH 26.8 (25.0-34.0) pg MCHC 31.9 L (32.0-36.0) g/dL RDW Std Deviation 59.1 H (36.4-46.3) fL RDW Coeff of Angel 19.5 H (11.5-14.5) % Plt Count 269 (130-400) K/uL MPV 8.8 L (9.4-12.4) fL Immature Gran % (Auto) 0.3 % Neut % (Auto) 71.8 % Lymph % (Auto) 15.2 % Mccone % (Auto) 7.3 % Eos % (Auto) 4.8 % Baso % (Auto) 0.6 % Neut # (Auto) 4.44 (1.40-6.50) K/uL Lymph # (Auto) 0.94 L (1.20-3.40) K/uL Mccone # (Auto) 0.45 (0.11-0.59) K/uL Eos # (Auto) 0.30 (0.00-0.50) K/uL Baso # (Auto) 0.04 (0.00-0.20) K/uL Immature Gran # (Auto) 0.02 (0.01-0.20) K/uL PT 11.4 (9.0-12.0) Seconds INR 1.0 (0.9-1.1) APTT 25.6 (21.0-31.0) Seconds PTT Ratio 0.9 Sodium 138 (136-145) mmol/L Potassium TNP Chloride 107 (98-107) mmol/L Carbon Dioxide 21 (21-32) mmol/L Anion Gap 10 (3-11) BUN 13 (6-23) mg/dl Creatinine 1.14 (0.6-1.4) mg/dl Est Cr Clr Drug Dosing 57.4 ml/min Est GFR ( Amer) 73.0 ml/min Est GFR (Non-Af Amer) 63.0 ml/min BUN/Creatinine Ratio 11.4 (10-20) Glucose 119 H (70-99(Fasting)) mg/dl Calcium 9.2 (8.6-10.3) mg/dl Magnesium 2.1 (1.7-2.4) mg/dl Total Bilirubin 0.6 (0.2-1.0) mg/dl AST TNP ALT 15 (7-52) U/L Alkaline Phosphatase 118 H (34-104) U/L Troponin I High Sens 6.6 (0-20) pg/ml Total Protein 6.6 (6.0-8.3) gm/dl Albumin 4.3 (3.4-5.0) gm/dl Globulin 2.3 L (2.5-4.0) gm/dl Albumin/Globulin Ratio 1.9 (0.9-2) TSH (0.300-4.500) uIu/ml 03/24/23 03/24/23 Range/Units 19:19 21:27 WBC (4.8-10.8) K/ul RBC (4.70-6.10) M/uL Hgb (14.0-18.0) g/dl Hct (42.0-52.0) % MCV (80.0-100.0) fL MCH (25.0-34.0) pg MCHC (32.0-36.0) g/dL RDW Std Deviation (36.4-46.3) fL RDW Coeff of Angel (11.5-14.5) % Plt Count (130-400) K/uL MPV (9.4-12.4) fL Immature Gran % (Auto) % Neut % (Auto) % Lymph % (Auto) % Mccone % (Auto) % Eos % (Auto) % Baso % (Auto) % Neut # (Auto) (1.40-6.50) K/uL Lymph # (Auto) (1.20-3.40) K/uL Mccone # (Auto) (0.11-0.59) K/uL Eos # (Auto) (0.00-0.50) K/uL Baso # (Auto) (0.00-0.20) K/uL Immature Gran # (Auto) (0.01-0.20) K/uL PT (9.0-12.0) Seconds INR (0.9-1.1) APTT (21.0-31.0) Seconds PTT Ratio Sodium (136-145) mmol/L Potassium 3.9 Chloride (98-107) mmol/L Carbon Dioxide (21-32) mmol/L Anion Gap (3-11) BUN (6-23) mg/dl Creatinine (0.6-1.4) mg/dl Est Cr Clr Drug Dosing ml/min Est GFR ( Amer) ml/min Est GFR (Non-Af Amer) ml/min BUN/Creatinine Ratio (10-20) Glucose (70-99(Fasting)) mg/dl Calcium (8.6-10.3) mg/dl Magnesium (1.7-2.4) mg/dl Total Bilirubin (0.2-1.0) mg/dl AST 13 ALT (7-52) U/L Alkaline Phosphatase (34-104) U/L Troponin I High Sens (0-20) pg/ml Total Protein (6.0-8.3) gm/dl Albumin (3.4-5.0) gm/dl Globulin (2.5-4.0) gm/dl Albumin/Globulin Ratio (0.9-2) TSH 2.228 (0.300-4.500) uIu/ml Administered Medications Diltiazem HCl 125 mg/ Dextrose 125 mls @ 5 mls/hr IV .Q24H [facility]; Protocol Stop: 04/23/23 19:14 Last Admin: 03/24/23 19:34 Dose: 5 mg/hr, 5 mls/hr Documented By: AN Co-signed By: JAYDEN Discontinued Medications Diltiazem HCl (Diltiazem Hcl 5 Mg/Ml 5 Ml Vial) 10 mg IV NOW STA Stop: 03/24/23 19:14 Last Admin: 03/24/23 19:18 Dose: 10 mg Documented By: AN Co-signed By: JAYDEN Sodium Chloride (Nss 1000ml) 500 mls @ 999 mls/hr IV .Q31M ONE Stop: 03/24/23 19:43 Last Infusion: 03/24/23 20:09 Dose: 0 mls/hr Documented By: Admin: 03/24/23 19:18 Dose: 999 mls/hr Documented By: AN Magnesium Sulfate/Dextrose (Magnesium Sulfate / D5w) 1 gm in 100 mls @ 100 mls/hr IV NOW STA Stop: 03/24/23 22:11 Last Admin: 03/24/23 21:32 Dose: 100 mls/hr Documented By: AN Miscellaneous (Stat Iv Infusion Titration Per Protocol) 1 each N/A NOW STA Stop: 03/24/23 19:14 Last Admin: 03/24/23 19:34 Dose: 1 each Documented By: AN Imaging Data Radiologist's Impression: Chest X-Ray 03/24/23 19:00 XR chest 1V portable HISTORY: Chest pain, nonspecific COMPARISON: Chest 03/05/2023. FINDINGS: No pneumothorax. The cardiac silhouette remains borderline enlarged. There are postoperative changes. Bibasilar hazy airspace opacities have improved. No evidence for pulmonary edema. Suspect trace bilateral pleural effusions. IMPRESSION: 1. Interval improvement in the bilateral hazy airspace opacities and trace bilateral pleural effusions. 2. No evidence for pulmonary edema. ACT 112: Negative or not required by law. Electronically signed by: Garett Schmidt M.D. 03/24/2023 8:26 PM Discharge Plan Visit Data Chief Complaint: Tachycardia Stated Complaint: HIGH PULSE RATE ED Provider: Marcus Larose Discharge Problem: Atrial flutter with rapid ventricular response, S/P CABG x 2, Anemia, Tach ycardia Patient Disposition: Admitted As Inpatient Condition: Fair Forms Stand Alone Forms: [facility] Prescriptions Prescriptions: No Action acetaminophen 500 mg Tablet 1,000 mg PO Q8 PRN (Reason: pain/fevers) Qty: 90 0RF furosemide 40 mg tablet 40 mg PO BID Rx Instructions: STARTED 03/04/23 FOR 7 DAYS. amlodipine 2.5 mg tablet 2.5 mg PO DAILY clopidogrel 75 mg tablet 75 mg PO DAILY simvastatin 40 mg tablet 40 mg PO HS cyanocobalamin (vitamin B-12) [Vitamin B-12] 500 mcg Tablet 1,000 mcg PO DAILY pantoprazole 40 mg tablet,delayed release (DR/EC) 40 mg PO DAILY ferrous sulfate 325 mg (65 mg iron) Tablet 325 mg PO Q OTHER DAY prazosin 2 mg capsule 6 mg PO HS cholecalciferol (vitamin D3) [Vitamin D3] 25 mcg (1,000 unit) Capsule 25 mcg PO DAILY cyclobenzaprine 5 mg tablet 5 mg PO BID PRN (Reason: MUSCLE SPASMS) metoprolol tartrate 25 mg tablet 12.5 mg PO DAILY potassium chloride 20 mEq tablet extended release 20 meq PO BID Rx Instructions: STARTED 03/04/23 FOR 7 DAYS aspirin 81 mg tablet,delayed release (DR/EC) 81 mg PO DAILY Rx Instructions: DVT Prophylaxis Referrals Referrals: Sarah Begum PA-C [Primary Care Provider] -
[2023-03-24] MEDS: dilTIAZem HCL 125 MG in DEXTROSE 5% 100 ML IV SCH (19:34)
[2023-03-24 19:59] LABS: Basophils # (auto) 0.04 K/uL (0.00-0.20); Basophils % (auto) 0.6 %; Eosinophils % (auto) 4.8 %; Hemoglobin 11.8 g/dl (14.0-18.0); Immature Granulocytes # (auto) 0.02 K/uL (0.01-0.20); Immature Granulocytes % (auto) 0.3 %; Lymphocytes # (auto) 0.94 K/uL (1.20-3.40); Lymphocytes % (auto) 15.2 %; Mean Corpuscular Hemoglobin 26.8 pg (25.0-34.0); Mean Corpuscular Hgb Conc 31.9 g/dL (32.0-36.0); Mean Corpuscular Volume 84.1 fL (80.0-100.0); Mean Platelet Volume 8.8 fL (9.4-12.4); Monocytes # (auto) 0.45 K/uL (0.11-0.59); Monocytes % (auto) 7.3 %; Neutrophils # (auto) 4.44 K/uL (1.40-6.50); Neutrophils % (auto) 71.8 %; Platelet Count 269 K/uL (130-400); RDW Coefficient of Variation 19.5 % (11.5-14.5); RDW Standard Deviation 59.1 fL (36.4-46.3); White Blood Count 6.19 K/ul (4.8-10.8)
[2023-03-24 20:06] LABS: Partial Thromboplastin Ratio 0.9; Partial Thromboplastin Time 25.6 Seconds (21.0-31.0); Prothrombin Time 11.4 Seconds (9.0-12.0)
--- NOTE | 2023-03-24 20:27 | XRay Report ---
XR chest 1V portable HISTORY: Chest pain, nonspecific COMPARISON: Chest 03/05/2023. FINDINGS: No pneumothorax. The cardiac silhouette remains borderline enlarged. There are postoperativ e changes. Bibasilar hazy airspace opacities have improved. No evidence for pulmonary edema. Suspect trace bilateral pleural effusions. IMPRESSION: 1. Interval improvement in the bilateral hazy airspace opacities and trace bilateral pleural effusion s. 2. No evidence for pulmonary edema. ACT 112: Negative or not required by law. Electronically signed by: Garett Schmidt M.D. 03/24/2023 8:26 PM
[2023-03-24 20:33] LABS: Troponin I High Sensitivity 6.6 pg/ml (0-20)
[2023-03-24 20:56] LABS: Alanine Aminotransferase 15 U/L (7-52); Albumin Globulin Ratio 1.9 (0.9-2); Albumin Level 4.3 gm/dl (3.4-5.0); Alkaline Phosphatase 118 U/L (34-104); Anion Gap 10 (3-11); BUN Creatinine Ratio 11.4 (10-20); Bilirubin,Total 0.6 mg/dl (0.2-1.0); Blood Urea Nitrogen 13 mg/dl (6-23); Calcium 9.2 mg/dl (8.6-10.3); Carbon Dioxide 21 mmol/L (21-32); Chloride 107 mmol/L (98-107); Creatinine Clr Calc Pharmacy 57.4 ml/min; Globulin 2.3 gm/dl (2.5-4.0); Glucose 119 mg/dl (70-99(Fasting)); Magnesium 2.1 mg/dl (1.7-2.4); Sodium 138 mmol/L (136-145); Total Protein 6.6 gm/dl (6.0-8.3)
[2023-03-24] MEDS ORDERED: MAGNESIUM SULFATE / D5W 1 GM/100 ML BAG IV STA (21:12)
[2023-03-24 21:59] LABS: Potassium 3.9 mmol/L (3.5-5.1)
[2023-03-25] MEDS ORDERED: Heparin IV Adult Wt-Based Low-Dose *NO* Bolus Protocol IV ONE (00:15)
[2023-03-25] MEDS: HEPARIN SODIUM/DEXTROSE 25,000 UNITS/500 ML BAG IV SCH ×2 (00:42→08:13)
[2023-03-25] MEDS ORDERED: CYCLOBENZAPRINE HCL 5 MG TAB PO PRN (01:27)
[2023-03-25] MEDS ORDERED: ACETAMINOPHEN 500 MG TAB PO PRN (01:27)
[2023-03-25] MEDS ORDERED: ONDANSETRON INJ 2 MG/ML 2 ML VIAL IV PRN (01:27)
--- NOTE | 2023-03-25 02:04 | History & Physical Report ---
Date of Service March 25, 2023 Assessment & Plan (1) Atrial flutter with rapid ventricular response: (2) S/P CABG x 2: (3) Hyperlipidemia: (4) Hypertension: (5) RBBB: Plan Atrial flutter with RVR/status post CABG x2 on 02-26-2023-- The patient will be admitted to telemetry for serial cardiac enzymes, serial EKG's, cardiac rhythm monitoring Continue metoprolol tartrate 12.5 mg daily, aspirin 81 mg daily, clopidogrel 75 mg daily. Hold prazosin 6 mg at bedtime and amlodipine 2.5 mg daily Patient has already been started on Cardizem drip after Cardizem 10 mg IV bolus, and will continue for now Start heparin drip low-dose no bolus Consult cardiology Hyperlipidemia- Continue rosuvastatin 20 mg daily GERD- Continue pantoprazole 40 mg daily Admission and Anticipated Discharge Date Admission Date: March 25, 2023 History of Present Illness Chief Complaint: The patient presents to the emergency department with complaint of rapid heart rate around 140 this morning, when his took his vitals as she usually does since he has had his bypass surgery on 02/26/2023 Primary Care Provider: Sarah Begum PA-C The patient is a 72-year-old male with a past medical history including status post CABG x2 on 02/26/2023, hyperlipidemia, hypertension, sleep apnea, mixed conductive and sensorineural hearing loss of right ear with restricted hearing of left ear, B12 deficiency, and GERD. The patient presents to the emergency department with rapid heart rate as noted above, without any adverse symptoms associated. In emergency department he was found to be in atrial flutter with RVR, was given by diltiazem 10 mg IV push followed by diltiazem drip at 5 mg/h. He also received magnesium 1 g IV, and normal saline 500 mL fluid bolus Allergies Allergy/AdvReac Type Severity Reaction Status Date / Time No Known Allergies Allergy Verified 03/24/23 23:35 Home Medications Medication Instructions Recorded Confirmed Type acetaminophen 500 mg tablet 1,000 mg PO Q8 PRN pain/fevers #90 09/13/20 03/24/23 Rx tabs amlodipine 2.5 mg tablet 2.5 mg PO DAILY 03/05/23 03/24/23 History aspirin 81 mg tablet,delayed 81 mg PO DAILY 03/05/23 03/24/23 History release cholecalciferol (vitamin D3) 25 25 mcg PO DAILY 03/05/23 03/24/23 History mcg (1,000 unit) capsule (Vitamin D3) clopidogrel 75 mg tablet 75 mg PO DAILY 03/05/23 03/24/23 History cyanocobalamin (vitamin B-12) 500 1,000 mcg PO DAILY 03/05/23 03/24/23 History mcg tablet (Vitamin B-12) cyclobenzaprine 5 mg tablet 5 mg PO BID PRN MUSCLE SPASMS 03/05/23 03/24/23 History ferrous sulfate 325 mg (65 mg 325 mg PO Q OTHER DAY 03/05/23 03/24/23 History iron) tablet metoprolol tartrate 25 mg tablet 12.5 mg PO DAILY 03/05/23 03/24/23 History pantoprazole 40 mg tablet,delayed 40 mg PO DAILY 03/05/23 03/24/23 History release prazosin 2 mg capsule 6 mg PO HS 03/05/23 03/24/23 History rosuvastatin 40 mg tablet 20 mg PO QPM 03/24/23 03/24/23 History Past Med/Surg History Medical History Arthritis Degenerative joint disease of left hip GERD (gastroesophageal reflux disease) Hyperlipidemia Hypertension Post traumatic stress disorder Sleep apnea CPAP Surgical History History of appendectomy History of colonoscopy History of ear surgery History of esophagogastroduodenoscopy (EGD) History of knee surgery Right History of left knee replacement 09/2021 History of tonsillectomy Family History Family/Other Hearing loss Hypertension Father Family history of diabetes mellitus Other No family history of adverse response to anesthesia No family history of bleeding disorder Social History Smoking Status: Never smoker Second Hand Exposure: Yes (FATHER SMOKED); Do You Dip or Chew Tobacco: Yes (2 cans/week- advised NPO AM DOS); Hx Alcohol Use: Yes Alcohol type: beer Alcohol Intake Frequency Comment: 2 DRINKS PER DAY Hx Substance Use: No Preferred Language: Czech Communication Ability: Effective 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 Beliefs That Will Affect Care: None marital status: Current Living Situation: Spouse Other Information That Helps Us Care for You: No Feels Safe at Home: Yes Safety Concerns: Feels Safe At This Time Assistive Devices: Cane, Denture - Upper, Denture - Lower, Glasses and Hearing Aid - Bilateral Review of Systems Review of Systems: The patient denies chest pain, palpitations, shortness of breath, dyspnea on exertion, cough, lower extremity swelling, sore throat, fevers, chills, sweats, weight change, fatigue, nausea, vomiting, diarrhea , constipation, abdominal pain, pelvic pain, blood in urine or stool, dysuria, urinary frequency or urgency, lightheadedness, dizziness, headache, memory loss, loss of consciousness, rash, abnormal bruising or bleeding, imbalance, focal or generalized weakness, numbness or tingling in arms or legs, generalized arthralgias or myalgias, back or neck pain, or night sweats. The review of systems is otherwise negative other than for that already noted above, and at least 10 systems have been reviewed. Physical Exam Physical Exam: The patient is awake, alert and oriented 3, well developed and well nourished, normocephalic and atraumatic, lying in bed and in no acute distress. HEENT--PERRL, EOMI, mucous membranes and oropharynx normal. Neck--supple. No JVD. No bruits. Thyroid normal, trachea midline, no adenopathy. Heart--normal S1 and S2. No murmurs, rubs or gallops. Lungs--clear bilaterally, no respiratory distress, no accessory muscle use. Abdomen--normal bowel sounds and soft. Nontender. Nondistended, no hernias or masses, no organomegaly. Extremities--no cyanosis or clubbing. No edema. Dermatologic--well-healed median sternotomy incision Neurologic--cranial nerves II through XII grossly intact. Rheumatologic--normal range of motion. Psychiatric--normal affect. Results & Data Results & Data Vital Signs (Past 12 Hours) Vital Signs Temp Pulse Pulse Pulse Resp BP BP 03/25/23 01:10 36.5 C 93 H 16 133/73 03/25/23 01:33 03/25/23 00:53 77 16 111/74 03/25/23 00:00 83 16 130/80 03/24/23 23:00 95 H 16 123/78 03/24/23 22:30 86 16 127/80 03/24/23 22:00 83 16 125/80 03/24/23 19:30 85 03/24/23 21:00 81 16 105/71 03/24/23 20:30 97 H 16 106/82 03/24/23 20:00 81 16 99/72 L 03/24/23 19:32 93 H 22 128/47 L 03/24/23 19:21 102 H 16 111/90 03/24/23 18:58 36.5 C 135 H 19 115/74 Pulse Ox O2 Del Method O2 Del Method 03/25/23 01:10 97 Room Air 03/25/23 01:33 Room Air 03/25/23 00:53 94 Room Air 03/25/23 00:00 96 Room Air 03/24/23 23:00 94 03/24/23 22:30 94 Room Air 03/24/23 22:00 96 Room Air 03/24/23 19:30 03/24/23 21:00 99 Room Air 03/24/23 20:30 98 Room Air 03/24/23 20:00 96 Room Air 03/24/23 19:32 98 Room Air 03/24/23 19:21 98 Room Air 03/24/23 18:58 97 Room Air Laboratory Results Laboratory Results WBC 6.19 K/ul (4.8-10.8) 03/24/23 19:19 RBC 4.40 M/uL (4.70-6.10) L 03/24/23 19:19 Hgb 11.8 g/dl (14.0-18.0) L 03/24/23 19:19 Hct 37.0 % (42.0-52.0) L 03/24/23 19:19 MCV 84.1 fL (80.0-100.0) 03/24/23 19:19 MCH 26.8 pg (25.0-34.0) 03/24/23 19:19 MCHC 31.9 g/dL (32.0-36.0) L 03/24/23 19:19 RDW Std Deviation 59.1 fL (36.4-46.3) H 03/24/23 19:19 RDW Coeff of Angel 19.5 % (11.5-14.5) H 03/24/23 19:19 Plt Count 269 K/uL (130-400) 03/24/23 19:19 MPV 8.8 fL (9.4-12.4) L 03/24/23 19:19 Immature Gran % (Auto) 0.3 % 03/24/23 19:19 Neut % (Auto) 71.8 % 03/24/23 19:19 Lymph % (Auto) 15.2 % 03/24/23 19:19 [place] % (Auto) 7.3 % 03/24/23 19:19 Eos % (Auto) 4.8 % 03/24/23 19:19 Baso % (Auto) 0.6 % 03/24/23 19:19 Neut # (Auto) 4.44 K/uL (1.40-6.50) 03/24/23 19:19 Lymph # (Auto) 0.94 K/uL (1.20-3.40) L 03/24/23 19:19 [place] # (Auto) 0.45 K/uL (0.11-0.59) 03/24/23 19:19 Eos # (Auto) 0.30 K/uL (0.00-0.50) 03/24/23 19:19 Baso # (Auto) 0.04 K/uL (0.00-0.20) 03/24/23 19:19 Immature Gran # (Auto) 0.02 K/uL (0.01-0.20) 03/24/23 19:19 PT 11.4 Seconds (9.0-12.0) 03/24/23 19:19 INR 1.0 (0.9-1.1) 03/24/23 19:19 APTT 25.6 Seconds (21.0-31.0) 03/24/23 19:19 PTT Ratio 0.9 03/24/23 19:19 Sodium 138 mmol/L (136-145) 03/24/23 19:19 Potassium 3.9 mmol/L (3.5-5.1) 03/24/23 21:27 Chloride 107 mmol/L (98-107) 03/24/23 19:19 Carbon Dioxide 21 mmol/L (21-32) 03/24/23 19:19 Anion Gap 10 (3-11) 03/24/23 19:19 BUN 13 mg/dl (6-23) 03/24/23 19:19 Creatinine 1.14 mg/dl (0.6-1.4) 03/24/23 19:19 Est Cr Clr Drug Dosing 57.4 ml/min 03/24/23 19:19 Est GFR ( Amer) 73.0 ml/min 03/24/23 19:19 Est GFR (Non-Af Amer) 63.0 ml/min 03/24/23 19:19 BUN/Creatinine Ratio 11.4 (10-20) 03/24/23 19:19 Glucose 119 mg/dl (70-99(Fasting)) H 03/24/23 19:19 Calcium 9.2 mg/dl (8.6-10.3) 03/24/23 19:19 Magnesium 2.1 mg/dl (1.7-2.4) 03/24/23 19:19 Total Bilirubin 0.6 mg/dl (0.2-1.0) 03/24/23 19:19 AST 13 U/L (13-39) 03/24/23 21:27 ALT 15 U/L (7-52) 03/24/23 19:19 Alkaline Phosphatase 118 U/L (34-104) H 03/24/23 19:19 Troponin I High Sens 6.6 pg/ml (0-20) 03/24/23 19:19 Total Protein 6.6 gm/dl (6.0-8.3) 03/24/23 19:19 Albumin 4.3 gm/dl (3.4-5.0) 03/24/23 19:19 Globulin 2.3 gm/dl (2.5-4.0) L 03/24/23 19:19 Albumin/Globulin Ratio 1.9 (0.9-2) 03/24/23 19:19 TSH 2.228 uIu/ml (0.300-4.500) 03/24/23 19:19 Impressions Chest X-Ray 03/24/23 19:00 XR chest 1V portable HISTORY: Chest pain, nonspecific COMPARISON: Chest 03/05/2023. FINDINGS: No pneumothorax. The cardiac silhouette remains borderline enlarged. There are postoperative changes. Bibasilar hazy airspace opacities have improved. No evidence for pulmonary edema. Suspect trace bilateral pleural effusions. IMPRESSION: 1. Interval improvement in the bilateral hazy airspace opacities and trace bilateral pleural effusions. 2. No evidence for pulmonary edema. ACT 112: Negative or not required by law. Electronically signed by: Garett Schmidt M.D. 03/24/2023 8:26 PM Code Status & VTE Plan Code Status Full code VTE Prophylaxis Plan VTE Prophylaxis will be ordered: Yes PG Care Time/CCT Total # of Minutes Spent Total Time Spent with Patient: Total time spent is greater than 50% in coordination of care (as documented) at patient's floor/unit and/or counseling patient: Coding Level of Care Code 60171 INT INP/OBS CARE 3/75MIN Diagnoses Atrial flutter with rapid ventricular response I48.92 S/P CABG x 2 Z95.1 Hyperlipidemia E78.5 Hypertension I10 RBBB I45.10
[2023-03-25 07:59] LABS: Basophils # (auto) 0.04 K/uL (0.00-0.20); Basophils % (auto) 0.6 %; Eosinophils # (auto) 0.36 K/uL (0.00-0.50); Eosinophils % (auto) 5.6 %; Hematocrit (blood only) 37.4 % (42.0-52.0); Hemoglobin 11.9 g/dl (14.0-18.0); Immature Granulocytes # (auto) 0.02 K/uL (0.01-0.20); Immature Granulocytes % (auto) 0.3 %; Lymphocytes # (auto) 0.88 K/uL (1.20-3.40); Lymphocytes % (auto) 13.7 %; Mean Corpuscular Hemoglobin 26.7 pg (25.0-34.0); Mean Corpuscular Hgb Conc 31.8 g/dL (32.0-36.0); Mean Platelet Volume 8.5 fL (9.4-12.4); Monocytes # (auto) 0.46 K/uL (0.11-0.59); Monocytes % (auto) 7.1 %; Neutrophils # (auto) 4.68 K/uL (1.40-6.50); Neutrophils % (auto) 72.7 %; Platelet Count 272 K/uL (130-400); RDW Coefficient of Variation 19.4 % (11.5-14.5); Red Blood Count 4.45 M/uL (4.70-6.10); White Blood Count 6.44 K/ul (4.8-10.8)
[2023-03-25 08:02] LABS: BUN Creatinine Ratio 12.4 (10-20); Creatinine Clr Calc Pharmacy 66.7 ml/min; Est GFR (African American) 88.8 ml/min; Est GFR (Non-African American) 76.6 ml/min; Magnesium 2.1 mg/dl (1.7-2.4); Phosphorus 3.7 mg/dl (2.5-4.9); Potassium 4.1 mmol/L (3.5-5.1)
[2023-03-25 08:09] LABS: Partial Thromboplastin Ratio 1.1; Partial Thromboplastin Time 29.7 Seconds (21.0-31.0)
[2023-03-25] MEDS: PANTOprazole 40 MG TAB PO SCH (08:18)
[2023-03-25] MEDS: CHOLECALCIFEROL 1,000 UNITS 25 MCG TAB PO SCH (08:19)
[2023-03-25] MEDS: METOPROLOL TARTRATE 25 MG TAB PO SCH (08:19)
[2023-03-25] MEDS: ASPIRIN 81 MG ECTAB PO SCH (08:19)
[2023-03-25] MEDS: CYANOCOBALAMIN (B-12) 500 MCG TABLET PO SCH (08:19)
[2023-03-25] MEDS ORDERED: HEPARIN SOD (PORCINE) 1000 UNIT/ML IV ONE ×2 (08:30→15:38)
[2023-03-25] MEDS ORDERED: FERROUS SULFATE 325 MG TAB PO SCH (09:00)
[2023-03-25] MEDS ORDERED: CLOPIDOGREL BISULFATE 75 MG TAB PO SCH (09:00)
--- NOTE | 2023-03-25 11:18 | Cardiology Consultation ---
Date of Consultation March 25, 2023 Assessment & Plan (1) Atrial flutter with rapid ventricular response: (2) CAD (coronary artery disease): (3) S/P CABG x 2: (4) Hypertension: (5) Hyperlipidemia: Plan ASSESSMENT/PLAN: 1. Atrial flutter: We discussed the diagnosis. New diagnosis this hospital stay. Presumably based on home vital sign check, has been in atrial flutter less than 48 hours before presentation and was placed on anticoagulation therapy. We discussed treatment strategies. Fortunately, while rate controlled on intravenous diltiazem. Would consider attempt to restore sinus rhythm. Discussed cardioversion versus antiarrhythmic therapy with amiodarone, versus ablation. He and his are interested in ablation. Keep n.p.o. after midnight for assessment tomorrow with electrophysiology for further discussion about possible ablation. Continue heparin drip for stroke risk reduction. Rhythm not likely postop phenomenon given nearly 4 weeks out from surgery. 2. CAD s/p CABG x 2: No angina since bypass. Now that he is on heparin, can discontinue Plavix. Plavix was recommended initially as part of a dual antiplatelet therapy for [address] [place] at [facility]. Continue statin therapy continue beta-sara. 3. Hypertension: Blood pressure well controlled. No changes made at this time. 4. Dyslipidemia: Continue high intensity statin therapy. Goal LDL < 70. 5. Disposition: Cardiology will continue to follow. N.p.o. after midnight for possible cardioversion or ablation tomorrow, once evaluated by electrophysiology. Patient care communicated with Dr. العراقي of the primary hospitalist service. Thank you for allowing me to participate in the care of your patient. Please call for any other questions or concerns. Sincerely, Timothy Hunt M.D. History of Present Illness Reason for Consultation: Atrial flutter Requesting Physician: Dr. Awad Attending Physician: Salazar العراقي MD History of Present Illness Mr. Barone is a very pleasant 72-year-old gentleman with a history significant for CAD s/p CABG x 2 (02/26/23 [facility]), hypertension, dyslipidemia, and sleep apnea. His primary journeyman mechanic is Dr. Warner. On 02/26/2023, he underwent CABG x2 (VIGIL to LAD and radial artery graft to OM; left radial artery harvest) at [facility] with Dr. Hall. When reviewing discharge summary from [facility], there was no apparent postop A-fib or atrial flutter. He received midodrine for a few days and intravenous iron. He was then seen in the outpatient CT surgery clinic on 03/21/2023 and appeared to be doing well at that time with improvement since surgery and overall energy level. His heart rate at that time was reported as 85 bpm with a blood pressure of 112/72 mmHg. He was admitted on 03/25/2023 after presenting to the emergency department with complaint of rapid heart rate noted when his took his vitals. He was noted to be in atrial flutter with rapid ventricular response with heart rates charted as high as 135 once presented here. He was given intravenous diltiazem in the emergency department as well as IV magnesium and normal saline 500 mL fluid bolus. Overnight his heart rates have been better controlled while on diltiazem drip of 5 mg/h. He has remained completely asymptomatic with atrial flutter, regardless of heart rate. His has been checking his vital signs twice daily and his heart rate is typically in the 80s when she checks it in the morning and afternoon. On 03/23/2023, she last checked his vitals at around noon time as they went to a football game. Then on the day of presentation, heart rate was in the 140s and because he felt asymptomatic and his heart rate was not 150 (trigger for ER visit based on [facility] discharge papers), they opted to stay at home. In the afternoon his heart rate was 131 bpm and thus came to the emergency department. He denies chest pain, shortness of breath, syncope, near syncope, palpitations, edema, or bleeding. He denies any recent illness. He denies nausea, vomiting, or diarrhea. He has not had any further angina. He describes prior angina as left-sided chest burning on exertion that would resolve with rest. Review of systems: As above. Review of systems otherwise negative/unremarkable. Family history: No known premature CAD. Social history: Denies tobacco abuse. Occasional alcohol but no alcohol since before CABG. He denies drug abuse. Lives at home with his . Has 2 biologic daughters. His has a daughter as well. His was present at the bedside. Allergies Allergy/AdvReac Type Severity Reaction Status Date / Time No Known Allergies Allergy Verified 03/24/23 23:35 Home Medications Medication Instructions Recorded Confirmed Type acetaminophen 500 mg tablet 1,000 mg PO Q8 PRN pain/fevers #90 09/13/20 03/24/23 Rx tabs amlodipine 2.5 mg tablet 2.5 mg PO DAILY 03/05/23 03/24/23 History aspirin 81 mg tablet,delayed 81 mg PO DAILY 03/05/23 03/24/23 History release cholecalciferol (vitamin D3) 25 25 mcg PO DAILY 03/05/23 03/24/23 History mcg (1,000 unit) capsule (Vitamin D3) clopidogrel 75 mg tablet 75 mg PO DAILY 03/05/23 03/24/23 History cyanocobalamin (vitamin B-12) 500 1,000 mcg PO DAILY 03/05/23 03/24/23 History mcg tablet (Vitamin B-12) cyclobenzaprine 5 mg tablet 5 mg PO BID PRN MUSCLE SPASMS 03/05/23 03/24/23 History ferrous sulfate 325 mg (65 mg 325 mg PO Q OTHER DAY 03/05/23 03/24/23 History iron) tablet metoprolol tartrate 25 mg tablet 12.5 mg PO DAILY 03/05/23 03/24/23 History pantoprazole 40 mg tablet,delayed 40 mg PO DAILY 03/05/23 03/24/23 History release prazosin 2 mg capsule 6 mg PO HS 03/05/23 03/24/23 History rosuvastatin 40 mg tablet 20 mg PO QPM 03/24/23 03/24/23 History Patient History Medical History Arthritis CAD (coronary artery disease) Degenerative joint disease of left hip GERD (gastroesophageal reflux disease) Hyperlipidemia Hypertension Post traumatic stress disorder Sleep apnea CPAP Surgical History (Updated 03/25/23 @ 13:39 by Thang Hunt MD) History of appendectomy History of colonoscopy History of ear surgery History of esophagogastroduodenoscopy (EGD) History of knee surgery Right History of left knee replacement 09/2021 History of tonsillectomy S/P CABG x 2 Family History Family/Other Hearing loss Hypertension Father Family history of diabetes mellitus Other No family history of adverse response to anesthesia No family history of bleeding disorder Social History Smoking Status: Never smoker Second Hand Exposure: Yes (FATHER SMOKED); Do You Dip or Chew Tobacco: Yes (2 cans/week- advised NPO AM DOS); Hx Alcohol Use: Yes Alcohol type: beer Alcohol Intake Frequency Comment: 2 DRINKS PER DAY Hx Substance Use: No Preferred Language: Kinyarwanda Communication Ability: Effective Manager Inside Required: No Beliefs That Will Affect Care: None marital status: Current Living Situation: Spouse Other Information That Helps Us Care for You: No Feels Safe at Home: Yes Safety Concerns: Feels Safe At This Time Assistive Devices: Cane, Denture - Upper, Denture - Lower, Glasses and Hearing Aid - Bilateral Physical Exam Physical Exam: Gen.: No acute distress. Alert and oriented. HEENT: Anicteric sclera. Neck: No JVD. No bruits. Normal carotid upstrokes bilaterally. Cardiac: No ventricular heave. Regular. Normal S1-S2. No murmurs, rubs, or gallops. Pulmonary: Clear to auscultation bilaterally without wheezes, rales, or rhonchi. Abdomen: Soft, nontender, nondistended, with normoactive bowel sounds. No bruits noted. Extremities: 2+ right radial pulse. s/p left radial artery harvest. 2+ posterior tibialis pulses bilaterally. Trace to 1+ bilateral lower extremity edema. No cyanosis. Psychiatric: Affect appears appropriate. Chest: Sternotomy site is clean, dry, and intact without erythema or discharge. Results & Data Vital Signs (Past 12 Hours) Vital Signs Temp Pulse Pulse Pulse Pulse Resp BP 03/25/23 07:49 36.4 C L 65 18 03/25/23 03:44 36.6 C 73 18 03/25/23 01:10 36.5 C 93 H 16 03/25/23 01:33 03/25/23 00:53 77 16 111/74 03/25/23 00:00 83 16 BP Pulse Ox O2 Del Method O2 Del Method 03/25/23 07:49 96/59 L 96 Room Air 03/25/23 03:44 105/67 95 Room Air 03/25/23 01:10 133/73 97 Room Air 03/25/23 01:33 Room Air 09/04/23 00:53 94 Room Air 03/25/23 00:00 130/80 96 Room Air Laboratory Results Laboratory Results - last 24 hr 03/24/23 03/24/23 03/24/23 19:19 19:19 19:19 WBC 6.19 RBC 4.40 L Hgb 11.8 L Hct 37.0 L MCV 84.1 MCH 26.8 MCHC 31.9 L RDW Std Deviation 59.1 H RDW Coeff of Angel 19.5 H Plt Count 269 MPV 8.8 L Immature Gran % (Auto) 0.3 Neut % (Auto) 71.8 Lymph % (Auto) 15.2 [place]mer[place]da % (Auto) 7.3 Eos % (Auto) 4.8 Baso % (Auto) 0.6 Neut # (Auto) 4.44 Lymph # (Auto) 0.94 L [place]da # (Auto) 0.45 Eos # (Auto) 0.30 Baso # (Auto) 0.04 Immature Gran # (Auto) 0.02 PT 11.4 INR 1.0 APTT 25.6 PTT Ratio 0.9 Sodium 138 Potassium TNP Chloride 107 Carbon Dioxide 21 Anion Gap 10 BUN 13 Creatinine 1.14 Est Cr Clr Drug Dosing 57.4 Est GFR ( Amer) 73.0 Est GFR (Non-Af Amer) 63.0 BUN/Creatinine Ratio 11.4 Glucose 119 H Calcium 9.2 Phosphorus Magnesium 2.1 Total Bilirubin 0.6 AST TNP ALT 15 Alkaline Phosphatase 118 H Troponin I High Sens 6.6 Total Protein 6.6 Albumin 4.3 Globulin 2.3 L Albumin/Globulin Ratio 1.9 TSH 03/24/23 03/24/23 03/25/23 19:19 21:27 07:05 WBC RBC Hgb Hct MCV MCH MCHC RDW Std Deviation RDW Coeff of Angel Plt Count MPV Immature Gran % (Auto) Neut % (Auto) Lymph % (Auto) [place] % (Auto) Eos % (Auto) Baso % (Auto) Neut # (Auto) Lymph # (Auto) [place] # (Auto) Eos # (Auto) Baso # (Auto) Immature Gran # (Auto) PT INR APTT 29.7 PTT Ratio 1.1 Sodium Potassium 3.9 Chloride Carbon Dioxide Anion Gap BUN Creatinine Est Cr Clr Drug Dosing Est GFR ( Amer) Est GFR (Non-Af Amer) BUN/Creatinine Ratio Glucose Calcium Phosphorus Magnesium Total Bilirubin AST 13 ALT Alkaline Phosphatase Troponin I High Sens Total Protein Albumin Globulin Albumin/Globulin Ratio TSH 2.228 03/25/23 03/25/23 07:05 07:05 WBC 6.44 RBC 4.45 L Hgb 11.9 L Hct 37.4 L MCV 84.0 MCH 26.7 MCHC 31.8 L RDW Std Deviation 59.0 H RDW Coeff of Angel 19.4 H Plt Count 272 MPV 8.5 L Immature Gran % (Auto) 0.3 Neut % (Auto) 72.7 Lymph % (Auto) 13.7 [place] % (Auto) 7.1 Eos % (Auto) 5.6 Baso % (Auto) 0.6 Neut # (Auto) 4.68 Lymph # (Auto) 0.88 L [place] # (Auto) 0.46 Eos # (Auto) 0.36 Baso # (Auto) 0.04 Immature Gran # (Auto) 0.02 PT INR APTT PTT Ratio Sodium 138 Potassium 4.1 Chloride 109 H Carbon Dioxide 21 Anion Gap 8 BUN 12 Creatinine 0.97 Est Cr Clr Drug Dosing 66.7 Est GFR ( Amer) 88.8 Est GFR (Non-Af Amer) 76.6 BUN/Creatinine Ratio 12.4 Glucose 120 H Calcium 9.0 Phosphorus 3.7 Magnesium 2.1 Total Bilirubin AST ALT Alkaline Phosphatase Troponin I High Sens Total Protein Albumin 4.0 Globulin Albumin/Globulin Ratio TSH Diagnostic Findings ECGs personally reviewed: ECG 03/24/2023 at 1905: Atrial flutter 122 bpm. RBBB. ECG 03/25/2023 at 9:22 AM: Atrial flutter 77 bpm. RBBB. Echo 11/30/2022 [facility]: LVEF 55 to 60%. Mild left atrial dilation. Moderate MR. Labs reviewed and notable for normal high-sensitivity troponin, normal potassium, normal renal function, normal transaminase levels, normal WBC, normal TSH, stable anemia. Cardiac cath 01/10/2023: Severe multivessel CAD. 1. 95% ostial, 80% mid, 98% distal RCA. 100% ostial RPDA with [id number] collaterals. 90% mid LAD. 80 to 90% mid circumflex. 2. Normal intracardiac filling pressure. Chest x-ray 03/24/2023: Interval improvement of bilateral hazy airspace opacities and trace bilateral pleural effusions. No pulmonary edema per radiology. Outside cardiology report from 03/21/2023 reviewed ([facility]). Echo 03/25/2023: EF 50 to 55%. No regional wall motion abnormalities. Mildly reduced RV systolic function. Moderate left atrial dilation. No significant valvular abnormalities. Telemetry personally reviewed: Atrial flutter with heart rates mostly in the 70s to 100s. Medications Administered Current Inpatient Medications Acetaminophen (Acetaminophen 500 Mg Tab) 1,000 mg PO Q8 PRN PRN Reason: pain/fevers Stop: 04/24/23 01:26 Aspirin (Aspirin 81 Mg Ectab) 81 mg PO DAILY [facility] Stop: 04/24/23 08:59 Last Admin: 03/25/23 08:19 Dose: 81 mg Clopidogrel Bisulfate (Clopidogrel Bisulfate 75 Mg Tab) 75 mg PO DAILY [facility] Stop: 04/24/23 08:59 Last Admin: 03/25/23 08:19 Dose: 75 mg Cyanocobalamin (Cyanocobalamin (B-12) 500 Mcg Tablet) 1,000 mcg PO DAILY [facility] Stop: 04/24/23 08:59 Last Admin: 03/25/23 08:19 Dose: 1,000 mcg Cyclobenzaprine HCl (Cyclobenzaprine Hcl 5 Mg Tab) 5 mg PO BID PRN PRN Reason: MUSCLE SPASMS Stop: 04/24/23 01:26 Ferrous Sulfate (Ferrous Sulfate 325 Mg Tab) 325 mg PO Q48H [facility] Stop: 04/24/23 08:59 Last Admin: 03/25/23 08:19 Dose: 325 mg Diltiazem HCl 125 mg/ Dextrose 125 mls @ 5 mls/hr IV .Q24H [facility]; Protocol Stop: 04/23/23 19:14 Last Titration: 03/25/23 06:45 Dose: 5 mg/hr, 5 mls/hr Heparin Sodium/Dextrose (Heparin Sodium/Dextrose) 25,000 units in 500 mls @ 21 mls/hr IV .[id number] [facility]; Protocol Stop: 04/24/23 00:14 Last Admin: 03/25/23 08:13 Dose: 1,050 units/hr, 21 mls/hr Metoprolol Tartrate (Metoprolol Tartrate 25 Mg Tab) 12.5 mg PO DAILY [facility] Stop: 04/24/23 08:59 Last Admin: 03/25/23 08:19 Dose: 12.5 mg Ondansetron HCl (Ondansetron Inj 2 Mg/Ml 2 Ml Vial) 4 mg IV Q6H PRN PRN Reason: Nausea Stop: 04/24/23 01:26 Pantoprazole Sodium (Pantoprazole 40 Mg Tab) 40 mg PO DAILY [facility] Stop: 04/24/23 08:59 Last Admin: 03/25/23 08:18 Dose: 40 mg Rosuvastatin Calcium (Rosuvastatin Calcium 20 Mg Tab) 20 mg PO QPM [facility] Stop: 04/24/23 20:59 Vitamin D (Cholecalciferol 1,000 Units 25 Mcg Tab) 1,000 units PO DAILY [facility] Stop: 04/24/23 08:59 Last Admin: 03/25/23 08:19 Dose: 1,000 units PG Care Time/CCT Total # of Minutes Spent Total Time Spent with Patient: Total time spent is greater than 50% in coordination of care (as documented) at patient's floor/unit and/or counseling patient: Coding Level of Care Code 42415 INT INP/OBS CARE 3/75MIN Diagnoses Atrial flutter with rapid ventricular response I48.92 CAD (coronary artery disease) I25.10 S/P CABG x 2 Z95.1 Hypertension I10 Hyperlipidemia E78.5
--- NOTE | 2023-03-25 13:35 | XCELERA ---
[id number] [id number]
[2023-03-25 15:28] LABS: Partial Thromboplastin Ratio 1.2; Partial Thromboplastin Time 34.3 Seconds (21.0-31.0)
[2023-03-25] MEDS: dilTIAZem HCL 125 MG in DEXTROSE 5% 100 ML IV SCH (18:20)
--- NOTE | 2023-03-25 20:18 | Hospitalist Progress Note ---
Date of Service March 25, 2023 Assessment & Plan (1) Atrial flutter with rapid ventricular response: Plan: rates controlled with low-dose BB and cardizem infusion rates are faster with minimal activity, however appreciate cardiology consult options discussed - cardioversion vs rhythm control (amiodarone, etc) vs aflutter ablation by report pt desiring aflutter ablation keep NPO after MN for possible aflutter ablation following EP eval (Dr Tsang) cont cardizem & heparin drips cont tele TSH wnl (2) S/P CABG x 2: Plan[place] [facility] [place] VIGIL-LAD and right radiatl artery to OM1 doing well post-op cont asa stopping plavix due to heparin drip and ultimately a DOAC cont metoprolol low-dose cont crestor 20mg daily in light of aflutter and recent surgery check echo to assess LV function, valves, etc (3) Hyperlipidemia: Plan: cont crestor (4) Hypertension: Plan: controlled (5) RBBB: Plan: as seen on EKG (6) Sleep apnea: Plan: CPAP (7) Anemia: Plan: mild check Fe studies, B12, folate Plan updated at bedside care d/w cardiology - Dr Hunt Admission and Anticipated Discharge Date Admission Date: March 25, 2023 Subjective patient sitting in chair comfortably during the visit he feels well has no symptoms due to the a.flutter - no chest pain, palpitations, dizziness, lightheadedness, or dyspnea/[facility] he is interested in aflutter ablation tele - rates <100 at rest at bedside had been feeling well s/p CABG - 2 V done at [facility] several weeks ago Review of Systems Review of Systems: gen - no fatigue, eating well, feels well cv - no chest pain centrally or near his sternal incision pulm - no cough GI - no abd pain or N/V Physical Exam Physical Exam: gen - NAD, looks well neck - no JVD mouth - MMM heart - irregular, s1 s2, rate <100, no murmur lungs - CTA b/l; no rales abd - soft NT ND BS+ chest - midline incision well-healed ext - trace edema b/l, pulses 2+ b/l psych - a/o x 3 Results & Data Results & Data Vital Signs (Past 12 Hours) Vital Signs Temp Pulse Pulse Resp BP BP Pulse Ox 03/25/23 19:23 36.7 C 75 18 111/71 98 03/25/23 19:12 03/25/23 16:49 36.3 C L 70 18 114/76 100 03/25/23 15:30 79 03/25/23 11:37 36.6 C 70 18 112/72 99 03/25/23 09:00 80 03/25/23 09:00 O2 Del Method 03/25/23 19:23 Room Air 03/25/23 19:12 Room Air 03/25/23 16:49 Room Air 03/25/23 15:30 03/25/23 11:37 Room Air 03/25/23 09:00 03/25/23 09:00 Room Air Laboratory Results Laboratory Results - last 24 hr 03/25/23 03/25/23 03/25/23 07:05 07:05 07:05 WBC 6.44 RBC 4.45 L Hgb 11.9 L Hct 37.4 L MCV 84.0 MCH 26.7 MCHC 31.8 L RDW Std Deviation 59.0 H RDW Coeff of Angel 19.4 H Plt Count 272 MPV 8.5 L Immature Gran % (Auto) 0.3 Neut % (Auto) 72.7 Lymph % (Auto) 13.7 [place] % (Auto) 7.1 Eos % (Auto) 5.6 Baso % (Auto) 0.6 Neut # (Auto) 4.68 Lymph # (Auto) 0.88 L [place] # (Auto) 0.46 Eos # (Auto) 0.36 Baso # (Auto) 0.04 Immature Gran # (Auto) 0.02 APTT 29.7 PTT Ratio 1.1 Sodium 138 Potassium 4.1 Chloride 109 H Carbon Dioxide 21 Anion Gap 8 BUN 12 Creatinine 0.97 Est Cr Clr Drug Dosing 66.7 Est GFR ( Amer) 88.8 Est GFR (Non-Af Amer) 76.6 BUN/Creatinine Ratio 12.4 Glucose 120 H Calcium 9.0 Phosphorus 3.7 Magnesium 2.1 Albumin 4.0 PG Care Time/CCT Total # of Minutes Spent Total Time Spent with Patient: Total time spent is greater than 50% in coordination of care (as documented) at patient's floor/unit and/or counseling patient: Coding Level of Care Code 49745 SUB INP/OBS CARE 2/35MIN Diagnoses Atrial flutter with rapid ventricular response I48.92 S/P CABG x 2 Z95.1 Hyperlipidemia E78.5 Hypertension I10 RBBB I45.10 Sleep apnea G47.30 Anemia D64.9 Anemia type: unspecified type (7) Anemia Anemia type: unspecified type Qualified Code(s): D64.9 - Anemia, unspecified
[2023-03-25] MEDS ORDERED: ROSUVASTATIN CALCIUM 20 MG TAB PO SCH (21:00)
[2023-03-25 22:35] LABS: Partial Thromboplastin Ratio 1.5
[2023-03-25 22:41] LABS: Partial Thromboplastin Time 42.1 Seconds (21.0-31.0)
--- NOTE | 2023-03-25 23:30 | Electrocardiogram Report ---
Test Reason : Blood Pressure : / mmHG Vent. Rate : 122 BPM Atrial Rate : 000 BPM P-R Int : 000 ms QRS Dur : 130 ms QT Int : 364 ms P-R-T Axes : 000 -01 022 degrees QTc Int : 518 ms Atrial flutter with rapid ventricular response Right bundle branch block T wave abnormality, consider inferolateral ischemia Abnormal ECG When compared with ECG of 05-MAR-2023 01:53, Atrial flutter has replaced Sinus rhythm Confirmed by Thang Hunt ([id number]) on 03/25/2023 11:30:00 PM Referred By: REFERRED SELF Confirmed By:Thang Hunt
[2023-03-26] MEDS: HEPARIN SODIUM/DEXTROSE 25,000 UNITS/500 ML BAG IV SCH (00:38)
[2023-03-26 06:35] LABS: Basophils # (auto) 0.05 K/uL (0.00-0.20); Basophils % (auto) 0.8 %; Eosinophils # (auto) 0.35 K/uL (0.00-0.50); Eosinophils % (auto) 5.6 %; Hemoglobin 10.4 g/dl (14.0-18.0); Immature Granulocytes # (auto) 0.01 K/uL (0.01-0.20); Immature Granulocytes % (auto) 0.2 %; Lymphocytes # (auto) 0.94 K/uL (1.20-3.40); Lymphocytes % (auto) 15.1 %; Mean Corpuscular Hemoglobin 26.7 pg (25.0-34.0); Mean Corpuscular Hgb Conc 31.5 g/dL (32.0-36.0); Mean Corpuscular Volume 84.6 fL (80.0-100.0); Mean Platelet Volume 8.7 fL (9.4-12.4); Monocytes # (auto) 0.51 K/uL (0.11-0.59); Monocytes % (auto) 8.2 %; Neutrophils # (auto) 4.35 K/uL (1.40-6.50); Neutrophils % (auto) 70.1 %; Platelet Count 225 K/uL (130-400); RDW Coefficient of Variation 19.7 % (11.5-14.5); RDW Standard Deviation 60.7 fL (36.4-46.3); White Blood Count 6.21 K/ul (4.8-10.8)
[2023-03-26 06:39] LABS: Albumin Level 3.8 gm/dl (3.4-5.0); BUN Creatinine Ratio 11.1 (10-20); Calcium 8.9 mg/dl (8.6-10.3); Creatinine Clr Calc Pharmacy 65.4 ml/min; Est GFR (African American) 86.6 ml/min; Est GFR (Non-African American) 74.7 ml/min; Phosphorus 3.7 mg/dl (2.5-4.9)
[2023-03-26 06:52] LABS: Partial Thromboplastin Ratio 1.4; Partial Thromboplastin Time 39.3 Seconds (21.0-31.0)
[2023-03-26 06:59] LABS: Ferritin 249.4 ng/ml (8-388)
[2023-03-26 07:56] LABS: Folate (Folic Acid),Ser orPlas 14.14 ng/ml (>5.38)
[2023-03-26] MEDS: METOPROLOL TARTRATE 25 MG TAB PO SCH (08:11)
[2023-03-26] MEDS: ASPIRIN 81 MG ECTAB PO SCH (08:11)
[2023-03-26] MEDS: CYANOCOBALAMIN (B-12) 500 MCG TABLET PO SCH (08:11)
[2023-03-26] MEDS: CHOLECALCIFEROL 1,000 UNITS 25 MCG TAB PO SCH (08:11)
[2023-03-26] MEDS: PANTOprazole 40 MG TAB PO SCH (08:12)
[2023-03-26 13:31] LABS: Partial Thromboplastin Ratio 1.4; Partial Thromboplastin Time 38.5 Seconds (21.0-31.0)
[2023-03-26] MEDS ORDERED: APIXABAN 5 MG TABLET PO SCH ×2 (14:45)
[2023-03-26] MEDS ORDERED: APIXABAN 5 MG TABLET PO ONE (15:35)
--- NOTE | 2023-03-26 15:51 | Communication Note ---
Date of Service: March 26, 2023 By CMS guidelines, a determination that the admission or continued stay is not medically necessary has been made by a member of the UR committee and clifton fernandez for this hospital stay, therefore a Code 44 will be completed and the Inpatient admission will be changed to outpatient.
--- NOTE | 2023-03-26 15:53 | Communication Note ---
Date of Service: March 26, 2023 By CMS guidelines, a determination that the admission or continued stay is not medically necessary has been made by a member of the UR committee and a gerald fernandez for this hospital stay, therefore a Code 44 will be completed and the Inpatient admission will be changed to outpatient. Salazar العراقي MD Attending Physician
--- NOTE | 2023-03-26 15:54 | Discharge Summary ---
Date of Service March 26, 2023 Admission HPI Per Admitting Provider The patient is a 72-year-old male with a past medical history including status post CABG x2 on 02/26/2023, hyperlipidemia, hypertension, sleep apnea, mixed conductive and sensorineural hearing loss of right ear with restricted hearing of left ear, B12 deficiency, and GERD. The patient presents to the emergency department with rapid heart rate as noted above, without any adverse symptoms associated. In emergency department he was found to be in atrial flutter with RVR, was given by diltiazem 10 mg IV push followed by diltiazem drip at 5 mg/h. He also received magnesium 1 g IV, and normal saline 500 mL fluid bolus Discharge Exam gen - NAD, looks well neck - no JVD mouth - MMM heart - irregular, s1 s2, rate <100, no murmur lungs - CTA b/l; no rales abd - soft NT ND BS+ chest - midline incision well-healed ext - trace edema b/l, pulses 2+ b/l psych - a/o x 3 Discharge Data Allergies Allergy/AdvReac Type Severity Reaction Status Date / Time No Known Allergies Allergy Verified 03/24/23 23:35 Consultations 03/24/23 22:19 ED Decision to Admit Stat 03/25/23 01:27 Consult Cardiology Routine Hospital Course (1) Atrial flutter with rapid ventricular response: rates controlled with low-dose BB and cardizem infusion rates are faster with minimal activity, however appreciate cardiology consult options discussed - cardioversion vs rhythm control (amiodarone, etc) vs aflutter ablation by report pt desiring aflutter ablation keep NPO after MN for possible aflutter ablation following EP eval (Dr Tsang) cont cardizem & heparin drips cont tele TSH wnl (2) S/P CABG x 2: at [facility] [place]26[place] [facility]IL-[facility] and right radiatl artery to OM1 doing well post-op cont asa stopping plavix due to heparin drip and ultimately a DOAC cont metoprolol low-dose cont crestor 20mg daily in light of aflutter and recent surgery check echo to assess LV function, valves, etc (3) Hyperlipidemia: cont crestor (4) Hypertension: controlled (5) RBBB: as seen on EKG (6) Sleep apnea: CPAP (7) Anemia: mild check Fe studies, B12, folate Plan updated at bedside care d/w cardiology - Dr Hunt Discharge Plan Discharge Items Patient Disposition: Home - Self-Care Reason For Visit: ATRIAL FLUTTER Discharge Diagnosis: 1. Atrial flutter - resolved 2. Recent 2-vessel CABG surgery at [facility] 3. Very mild anemia due to iron deficiency Activity: As commented below Activity Comment: follow any previous activity instructions provided by your [facility] Non-emergency contact: Primary Care Provider, Surgeon and Poultice Machine Operator Call non-emergency contact if: you have any medication questions, your symptoms worsen and you have a fever Follow-up/Referrals: Leroy Warner MD [Physician] - (see Dr Warner, Dr Reynold Tsang (the electrophysiology customer advisor specialist that saw you on 03/26/23), or your customer advisor specialist at the [facility] in 1 week) Sarah Begum PA-C [Primary Care Provider] - Diet: Heart Healthy Addtl Dielectric Testing Machine Operator Provider Instructions: Anticoagulation (Blood thinner) Medication Instructions: Your atrial flutter condition is typically treated with an anticoagulant. Anticoagulants will thin your blood to help prevent blood clot formation in your heart. Your blood thinner is ELIQUIS. * You should take your medication exactly as directed. * Never skip a dose. * Never take a double dose. If you miss a dose, take it as soon as you remember. Call your Primary Care doctor or Poultice Machine Operator if you experience any of the following: * Chest Pain * Sudden Shortness of Breath * Rapid or pounding heart beat * Fainting * Dizziness * Cough with blood or bloody sputum * Sweating more than normal * Bruises * Heavy or uncontrolled bleeding * Blood in your urine, stool or vomit * Black or tarry stools * Heavy nose bleeding Pending Studies at Discharge: No Stand-Alone Forms: [employer] Smoking Cessation Medications and DC Order Prescriptions: New Eliquis 5 mg tablet 5 mg PO BID Qty: 60 2RF metoprolol succinate 25 mg tablet extended release 24 hr 12.5 mg PO DAILY Qty: 30 2RF Rx Instructions: start 03/26/23 Continued acetaminophen 500 mg Tablet 1,000 mg PO Q8 PRN (Reason: pain/fevers) Qty: 90 0RF cyanocobalamin (vitamin B-12) [Vitamin B-12] 500 mcg Tablet 1,000 mcg PO DAILY pantoprazole 40 mg tablet,delayed release (DR/EC) 40 mg PO DAILY cholecalciferol (vitamin D3) [Vitamin D3] 25 mcg (1,000 unit) Capsule 25 mcg PO DAILY cyclobenzaprine 5 mg tablet 5 mg PO BID PRN (Reason: MUSCLE SPASMS) aspirin 81 mg tablet,delayed release (DR/EC) 81 mg PO DAILY Rx Instructions: DVT Prophylaxis rosuvastatin 40 mg Tablet 20 mg PO QPM Rx Instructions: info from vt Changed ferrous sulfate 325 mg (65 mg iron) Tablet 325 mg PO DAILY Qty: 1 0RF Rx Instructions: purchase [id number] Held prazosin 2 mg capsule 6 mg PO HS Hold Instructions: your blood pressures were low while here; this medication, although for enlarged prostate, is actually a blood pressure medication. please hold until you see your outpatient doctors. Discontinued amlodipine 2.5 mg tablet 2.5 mg PO DAILY clopidogrel 75 mg tablet 75 mg PO DAILY metoprolol tartrate 25 mg tablet 12.5 mg PO DAILY Krames/Other Patient Handouts: Understanding Atrial Flutter Admission Data Admit Date/Time: 03/25/23 00:15 Attending Provider: Salazar العراقي Admit Provider: Adrián Awad Primary Care Provider: Sarah Begum Other Providers: Adrián Awad ; Leroy Warner Coding Diagnoses Atrial flutter with rapid ventricular response I48.92 S/P CABG x 2 Z95.1 Hyperlipidemia E78.5 Hypertension I10 RBBB I45.10 Sleep apnea G47.30 Anemia D64.9 Anemia type: unspecified type
--- NOTE | 2023-03-26 18:41 | Cardiology Progress Note ---
Date of Service March 26, 2023 Assessment & Plan (1) Atrial flutter with rapid ventricular response: (2) CAD (coronary artery disease): (3) S/P CABG x 2: (4) Hypertension: (5) Hyperlipidemia: Plan ASSESSMENT/PLAN: 1. Atrial flutter: He converted to sinus rhythm yesterday evening. He was not aware of any conversion. He did not seem to be symptomatic with the arrhythmia in any regard. With this has any relation to his recent cardiac surgery is unclear. He will be discharged on systemic anticoagulation can be monitored for recurrence. Catheter based therapy can be entertained for definitive treatment of what appears to be a typical right atrial flutter. 2. CAD s/p CABG x 2: No angina since bypass. Now that he is on heparin, can discontinue Plavix. Plavix was recommended initially as part of a dual antiplatelet therapy for [address] surgery at [facility] [place]. Continue statin therapy continue beta-sara. 3. Hypertension: Blood pressure well controlled. No changes made at this time. 4. Dyslipidemia: Continue high intensity statin therapy. Goal LDL < 70. Admission and Anticipated Discharge Date Admission Date: March 25, 2023 Subjective This afternoon the patient was feeling well. He has been ambulatory. Denies any sense of palpitation. No dizziness. He was not generally aware of any conversion from atrial flutter to sinus rhythm. Review of Systems Review of Systems: Per HPI Physical Exam Physical Exam: Gen.: No acute distress. Alert and oriented. HEENT: Anicteric sclera. Neck: No JVD. No bruits. Normal carotid upstrokes bilaterally. Cardiac: Regular rhythm and normal rate. Chest: Healing sternotomy scar Pulmonary: Clear to auscultation bilaterally without wheezes, rales, or rhonchi. Extremities: 2+ right radial pulse. s/p left radial artery harvest. 2+ posterior tibialis pulses bilaterally. . No cyanosis. Psychiatric: Affect appears appropriate. Results & Data Vital Signs (Past 12 Hours) Vital Signs Temp Pulse Pulse Resp BP BP Pulse Ox 03/26/23 16:16 36.6 C 96 H 66 19 111/71 120/78 100 03/26/23 16:05 36.6 C 66 19 120/78 100 03/26/23 11:37 36.4 C L 62 19 102/66 100 03/26/23 07:53 36.6 C 66 19 114/75 99 O2 Del Method 03/26/23 16:16 03/26/23 16:05 Room Air 03/26/23 11:37 Room Air 03/26/23 07:53 Room Air Laboratory Results Abnormal Lab Results 03/25/23 03/26/23 03/26/23 21:29 05:48 05:48 WBC 6.21 RBC 3.90 L Hgb 10.4 L Hct 33.0 L MCV 84.6 MCH 26.7 MCHC 31.5 L RDW Std Deviation 60.7 H RDW Coeff of Angel 19.7 H Plt Count 225 MPV 8.7 L Immature Gran % (Auto) 0.2 Neut % (Auto) 70.1 Lymph % (Auto) 15.1 [place] % (Auto) 8.2 Eos % (Auto) 5.6 Baso % (Auto) 0.8 Neut # (Auto) 4.35 Lymph # (Auto) 0.[address] # (Auto) 0.51 Eos # (Auto) 0.35 Baso # (Auto) 0.05 Immature Gran # (Auto) 0.01 APTT 42.1 H* PTT Ratio 1.5 Sodium 140 Potassium 4.0 Chloride 109 H Carbon Dioxide 23 Anion Gap 8 BUN 11 Creatinine 0.99 Est Cr Clr Drug Dosing 65.4 Est GFR ( Amer) 86.6 Est GFR (Non-Af Amer) 74.7 BUN/Creatinine Ratio 11.1 Glucose 116 H Calcium 8.9 Phosphorus 3.7 Iron 32 L TIBC 294 Unsaturated IBC 262 Transferrin % Sat 11 L Ferritin 249.4 Albumin 3.8 Vitamin B12 Folate 03/26/23 03/26/23 03/26/23 05:48 05:48 12:55 WBC RBC Hgb Hct MCV MCH MCHC RDW Std Deviation RDW Coeff of Angel Plt Count MPV Immature Gran % (Auto) Neut % (Auto) Lymph % (Auto) [place] % (Auto) Eos % (Auto) Baso % (Auto) Neut # (Auto) Lymph # (Auto) [place] # (Auto) Eos # (Auto) Baso # (Auto) Immature Gran # (Auto) APTT 39.3 H 38.5 H PTT Ratio 1.4 1.4 Sodium Potassium Chloride Carbon Dioxide Anion Gap BUN Creatinine Est Cr Clr Drug Dosing Est GFR ( Amer) Est GFR (Non-Af Amer) BUN/Creatinine Ratio Glucose Calcium Phosphorus Iron TIBC Unsaturated IBC Transferrin % Sat Ferritin Albumin Vitamin B12 468 Folate 14.14 PG Care Time/CCT Total # of Minutes Spent Total Time Spent with Patient: Total time spent is greater than 50% in coordination of care (as documented) at patient's floor/unit and/or counseling patient: Coding Level of Care Code 27310 SUB INP/OBS CARE 2/35MIN Diagnoses Atrial flutter with rapid ventricular response I48.92 CAD (coronary artery disease) I25.10 S/P CABG x 2 Z95.1 Hypertension I10 Hyperlipidemia E78.5
--- NOTE | 2023-03-26 18:52 | Electrocardiogram Report ---
Test Reason : Blood Pressure : / mmHG Vent. Rate : 063 BPM Atrial Rate : 275 BPM P-R Int : 000 ms QRS Dur : 140 ms QT Int : 436 ms P-R-T Axes : 091 018 078 degrees QTc Int : 446 ms Atrial flutter with variable A-V block Right bundle branch block T wave abnormality, consider inferolateral ischemia Abnormal ECG When compared with ECG of 24-MAR-2023 19:05, Vent. rate has decreased BY 59 BPM Confirmed by Reynold Tsang ([id number]) on 03/26/2023 6:51:34 PM Referred By: REFERRED SELF Confirmed By:Catrachito Tsang
--- NOTE | 2023-03-27 16:12 | Electrocardiogram Report ---
Test Reason : Blood Pressure : / mmHG Vent. Rate : 069 BPM Atrial Rate : 069 BPM P-R Int : 210 ms QRS Dur : 148 ms QT Int : 482 ms P-R-T Axes : 049 025 013 degrees QTc Int : 516 ms Poor data quality, interpretation may be adversely affected Sinus rhythm with 1st degree A-V block Right bundle branch block T wave abnormality, consider lateral ischemia Abnormal ECG When compared with ECG of 25-MAR-2023 09:22, (unconfirmed) Sinus rhythm has replaced Atrial flutter QT has lengthened Confirmed by Reynold Tsang ([id number]) on 03/27/2023 4:12:26 PM Referred By: REFERRED SELF Confirmed By:Catrachito Tsang
== END 2023-03-26 16:45 | disposition home health service (06) ==
LOC: ED 18:53 → 4W 03-25 00:15 → SUATTDRO 03-25 00:15 → INTOOBSV 03-25 00:15 → 4W 03-25 00:53